=== PATIENT | female | born 1960 | race Caucasian/White ===

== ENCOUNTER 2017-10-11 10:19 | Emergency (ER) | payer OTHER ==
[~2017-10-11] VITALS: Ht 170.2 cm; Wt 64.0 kg
[2017-10-11] MEDS ORDERED: NS IV 1000 ML 1,000 ML IV ONE (11:06)
[2017-10-11 11:11] LABS: BASOPHILS % (AUTO) 1 % (0-10); EOSINOPHILS % (AUTO) 1 % (0-10); HEMATOCRIT 36 % (35-52); HEMOGLOBIN 11.9 G/DL (11.5-16.0); LYMPHOCYTES # (AUTO) 0.8 X 10^3 (1.0-4.0); LYMPHOCYTES % (AUTO) 19 % (12-44); MEAN CORPUSCULAR HEMOGLOBIN 30 PG (25-34); MEAN CORPUSCULAR HGB CONC 33 G/DL (32-36); MEAN CORPUSCULAR VOLUME 89 FL (80-99); MONOCYTES # (AUTO) 0.4 X 10^3 (0.0-1.0); MONOCYTES % (AUTO) 8 % (0-12); NEUTROPHILS # (AUTO) 3.1 X 10^3 (1.8-7.8); NEUTROPHILS % (AUTO) 71 % (42-75); PLATELET COUNT 476 10^3/uL (130-400); RED BLOOD COUNT 4.03 10^6/uL (4.35-5.85); WHITE BLOOD COUNT 4.3 10^3/uL (4.3-11.0)
[2017-10-11 11:25] LABS: ALANINE AMINOTRANSFERASE 11 U/L (0-55); ALBUMIN 3.6 GM/DL (3.2-4.5); ALKALINE PHOSPHATASE 101 U/L (40-136); BILIRUBIN,TOTAL 0.4 MG/DL (0.1-1.0); BUN/CREATININE RATIO 9; CARBON DIOXIDE 23 MMOL/L (21-32); CHLORIDE 104 MMOL/L (98-107); CREATININE SERUM 0.75 MG/DL (0.60-1.30); GFR ESTIMATED > 60; GLUCOSE 104 MG/DL (70-105); POTASSIUM 4.2 MMOL/L (3.6-5.0); SODIUM 139 MMOL/L (135-145); TOTAL PROTEIN 7.5 GM/DL (6.4-8.2)
[2017-10-11] MEDS ORDERED: KETOROLAC 30 MG/ML VIAL IVP STA (11:30)
--- NOTE | 2017-10-11 11:33 | ED GI ---
General Chief Complaint: Abdominal/GI Problems Stated Complaint: ABD PAIN Nursing Triage Note: PT TO AMBULATES TO ROOM 7 PT CO OF ABD PAIN N/V FOR A FEW DAYS, PT STATES HAS HX OF COLITIS, HAD RECENT HEMORRIOD SURG APPROX 2 WEEKS AGO. PT STATES HAD BEEN TAKING HYDROCODONES BUT STOPPED WHEN STARTED BEING NAUSEATED AND HAVING ABD PAIN. PT STATES HAD STOPPED COLITIS MEDS FOR A FEW DAYS. RATES PAIN 4/10 Sepsis Screen: No Definite Risk Source of Information: Patient Exam Limitations: No Limitations History of Present Illness Date Seen by Provider: Oct 11, 2017 Time Seen by Provider: 11:00 Initial Comments Here with report of abdominal pain with nausea the past couple days she had hemorrhoid surgery 2 weeks ago and was having some watery stools. She was done and stool softeners. She did start those yesterday as well as MiraLAX. She stopped her hydrocodone yesterday. She says that she may be a little bit dehydrated. Does have history of colitis and she had to stop her colitis medicines for a few days. Denies fevers. Timing/Duration: 2-3 Days Severity/Quality: Moderate, Cramping Location: Generalized Abdomen Radiation: No Radiation Activities at Onset: None Modifying Factors: Worsens With Eating, Improves With Resting Associated Symptoms: No Back Pain, No Chest Pain, No Fever/Chills, Fatigue, Nausea/Vomiting, No Shortness of Air, No Weakness Allergies and Home Medications Allergies Coded Allergies: No Known Drug Allergies (Unverified , 10/11/17) Review of Systems Constitutional: see HPI, No chills, No fever EENTM: No Symptoms Reported Respiratory: No Symptoms Reported Cardiovascular: No Symptoms Reported Gastrointestinal: See HPI, Abdominal Pain, Diarrhea, Nausea, Vomiting Genitourinary: Denies Hematuria, Urgency Musculoskeletal: no symptoms reported Skin: no symptoms reported All Other Systems Reviewed Negative Unless Noted: Yes Past Uwadfay-Dhfcmj-Zbqoym Hx Patient Social History Alcohol Use: Denies Use Recreational Drug Use: No Smoking Status: Never a Smoker Recent Foreign Travel: No Contact w/Someone Who Travel: No Recent Infectious Disease Expo: No Recent Hopitalizations: Yes (HEMORROIDETOMY 2 WEEKS AGO) Physical Abuse: No Sexual Abuse: No Seasonal Allergies Seasonal Allergies: No Surgeries History of Surgeries: Yes (hemorrhoidectomy) Surgeries: Abdominal Respiratory History of Respiratory Disorde: No Cardiovascular History of Cardiac Disorders: No Neurological History of Neurological Disord: No Genitourinary History of Genitourinary Disor: No Gastrointestinal History of Gastrointestinal Di: Yes Gastrointestinal Disorders: Colitis Musculoskeletal History of Musculoskeletal Dis: No Endocrine History of Endocrine Disorders: No HEENT History of HEENT Disorders: No Cancer History of Cancer: No Psychosocial History of Psychiatric Problem: No Suicide Risk Score: 0 Integumentary History of Skin or Integumenta: No Reviewed Nursing Assessment Reviewed/Agree w Nursing PMH: Yes Physical Exam Vital Signs VS - Last 72 Hours, by Label 10/11/17 10:25 Temp 97.4 Pulse 74 Resp 18 B/P (MAP) 160/79 (106) Pulse Ox 99 Capillary Refill : Less Than 3 Seconds General Appearance: WD/WN, no apparent distress HEENT: PERRL/EOMI, pharynx normal Neck: full range of motion, supple Respiratory: lungs clear, normal breath sounds Cardiovascular: regular rate, rhythm, no murmur Peripheral Pulses: 2+ Dorsalis Pedis (R), 2+ Left Dors-Pedis (L), 2+ Radial Pulses (R), 2+ Radial Pulses (L) Gastrointestinal: normal bowel sounds, non tender, soft Extremities: non-tender, normal inspection Back: normal inspection, no CVA tenderness, no vertebral tenderness Neurologic/Psychiatric: alert, oriented x 3 Skin: normal color, warm/dry Progress/Results/Core Measures Results/Orders Lab Results Laboratory Tests Test 10/11/17 10:45 10/11/17 13:23 Range/Units White Blood Count 4.3 4.3-11.0 10^3/uL Red Blood Count 4.03 L 4.35-5.85 10^6/uL Hemoglobin 11.9 11.5-16.0 G/DL Hematocrit 36 35-52 % Mean Corpuscular Volume 89 80-99 FL Mean Corpuscular Hemoglobin 30 25-34 PG Mean Corpuscular Hemoglobin Concent 33 32-36 G/DL Red Cell Distribution Width 13.0 10.0-14.5 % Platelet Count 476 H 130-400 10^3/uL Mean Platelet Volume 9.0 7.4-10.4 FL Neutrophils (%) (Auto) 71 42-75 % Lymphocytes (%) (Auto) 19 12-44 % Monocytes (%) (Auto) 8 0-12 % Eosinophils (%) (Auto) 1 0-10 % Basophils (%) (Auto) 1 0-10 % Neutrophils # (Auto) 3.1 1.8-7.8 X 10^3 Lymphocytes # (Auto) 0.8 L 1.0-4.0 X 10^3 Monocytes # (Auto) 0.4 0.0-1.0 X 10^3 Eosinophils # (Auto) 0.0 0.0-0.3 10^3/uL Basophils # (Auto) 0.0 0.0-0.1 10^3/uL Sodium Level 139 135-145 MMOL/L Potassium Level 4.2 3.6-5.0 MMOL/L Chloride Level 104 98-107 MMOL/L Carbon Dioxide Level 23 21-32 MMOL/L Anion Gap 12 5-14 MMOL/L Blood Urea Nitrogen 7 7-18 MG/DL Creatinine 0.75 0.60-1.30 MG/DL Estimat Glomerular Filtration Rate > 60 BUN/Creatinine Ratio 9 Glucose Level 104 70-105 MG/DL Calcium Level 9.0 8.5-10.1 MG/DL Magnesium Level 2.0 1.8-2.4 MG/DL Total Bilirubin 0.4 0.1-1.0 MG/DL Aspartate Amino Transf (AST/SGOT) 18 5-34 U/L Alanine Aminotransferase (ALT/SGPT) 11 0-55 U/L Alkaline Phosphatase 101 40-136 U/L Total Protein 7.5 6.4-8.2 GM/DL Albumin 3.6 3.2-4.5 GM/DL Urine Color YELLOW Urine Clarity CLEAR Urine pH 8 5-9 Urine Specific [place] 1.010 L 1.016-1.022 Urine Protein NEGATIVE NEGATIVE Urine Glucose (UA) NEGATIVE NEGATIVE Urine Ketones 4+ H NEGATIVE Urine Nitrite NEGATIVE NEGATIVE Urine Bilirubin NEGATIVE NEGATIVE Urine Urobilinogen NORMAL NORMAL MG/DL Urine Leukocyte Esterase NEGATIVE NEGATIVE Urine RBC (Auto) NEGATIVE NEGATIVE Urine RBC NONE /HPF Urine WBC NONE /HPF Urine Squamous Epithelial Cells NONE /HPF Urine Crystals NONE /LPF Urine Bacteria NEGATIVE /HPF Urine Casts NONE /LPF Urine Mucus NEGATIVE /LPF Urine Culture Indicated NO My Orders Orders - ALEJANDRA BAIN MD Cbc With Automated Diff (10/11/17 11:06) Comprehensive Metabolic Panel (10/11/17 11:06) Magnesium (10/11/17 11:06) Ua Culture If Indicated (10/11/17 11:06) Saline Lock/Iv-Start (10/11/17 11:06) Acute Abd Series (10/11/17 11:06) Ns Iv 1000 Ml (Sodium Chloride 0.9%) (10/11/17 11:06) Ketorolac Injection (Toradol Injection) (10/11/17 11:30) D5 Ns 1000 Ml Iv Solution (Dextrose 5%/0 (10/11/17 14:04) Acetaminophen Tablet (Tylenol Tablet) (10/11/17 14:08) Medications Given in ED Current Medications Medications Dose Ordered Sig/Devang Route Start Time Stop Time Status Last Admin Dose Admin Sodium Chloride 1,000 ml @ 0 mls/hr Q0M ONCE IV 10/11/17 11:06 10/11/17 11:08 DC 10/11/17 11:22 1,000 MLS/HR Vital Signs/I&O Vital Sign - Last 12Hours 10/11/17 10:25 Temp 97.4 Pulse 74 Resp 18 B/P (MAP) 160/79 (106) Pulse Ox 99 Blood Pressure Mean: 106 Progress Note : Progress Note Seen and evaluated. IV, labs, UA, normal saline 1 L bolus and Zofran 4 mg IV. Monitor patient. Renal function okay so Toradol 30 mg IV ordered. Acute abdominal series is been ordered. Monitor patient. 1342: UA obtained and pending results. Patient doing a little better. 1435: Repeat D5NS 1 L due to 4 + ketones. Tylenol 1 g by mouth given. Discharged home after with return precautions. Patient feeling better. Discharged home with return precautions. Patient verbalize understanding instructions and agreement with plan. Departure Impression Impression: Primary Impression: Dehydration Additional Impression: Generalized abdominal pain Disposition: HOME, SELF-CARE Condition: Improved Departure-Patient Inst. Decision time for Depature: 14:44 Referrals: BETSY VEGA DO (PCP/Family) Primary Care Physician Patient Instructions: Acute Abdomen (Belly Pain), Adult (DC), Dehydration, Adult (DC), Constipation, Adult (DC) Add. Discharge Instructions: All discharge instructions reviewed with patient and/or family. Voiced understanding. Take medications as previously prescribed. Clear liquid diet for 24 hours and advance as tolerated. Follow-up with your DrKamila in a few days for recheck. Return for worse pain, fever, vomiting, weakness, breathing problems or other concerns as needed. ALEJANDRA BAIN MD Oct 11, 2017 11:33
--- NOTE | 2017-10-11 12:33 | Diagnostic Imaging Report ---
INDICATION: Pain, recent surgery. FINDINGS: The lungs are clear. The heart and vessels normal. There is no effusion or pneumothorax. Supine and upright abdominal films revealed no evidence for bowel obstruction and no findings of significant ileus. No pathological bowel dilatation. No air-fluid levels. No pneumatosis. No free gas. No abnormal fecal loading. IMPRESSION: No acute-appearing abnormalities. Dictated by: Dictated on workstation # [id number]
[2017-10-11 13:39] LABS: BILIRUBIN,URINE NEGATIVE (NEGATIVE); CLARITY,URINE CLEAR; COLOR,URINE YELLOW; GLUCOSE, URINE (UA) NEGATIVE (NEGATIVE); KETONES,URINE 4+ (NEGATIVE); LEUKOCYTE ESTERASE ,URINE NEGATIVE (NEGATIVE); NITRITE,URINE NEGATIVE (NEGATIVE); PH,URINE 8 (5-9); PROTEIN,URINE NEGATIVE (NEGATIVE); UROBILINOGEN,URINE NORMAL (NORMAL)
[2017-10-11 13:59] LABS: BACTERIA,URINE NEGATIVE /HPF
[2017-10-11] MEDS ORDERED: D5 NS 1000 ML IV SOLUTION 1,000 ML IV STA (14:04)
[2017-10-11] MEDS ORDERED: ACETAMINOPHEN 500 MG TAB (TYLENOL) PO STA (14:08)
[2017-10-11 14:50] VITALS: BP 134/76
--- OUTSIDE RECORDS SUMMARY | 2017-10-13 08:06 | XMS REPORT | Continuity of Care Document ---
Author Author [employer] Organization [facility] Address Unknown Phone Unavailable Care Team Providers Care Dry Cleaner Hand Name Role Phone [employer] Unavailable Unavailable Problems Medications Allergies, Adverse Reactions, Alerts Immunizations Results Vital Signs Encounters Location Location Details Encounter Type Encounter Number Reason For Visit Attending Provider ADM Date DC Date Status Source OUTPATIENT [id number] ADRIANA LIMON 07/13/20162015 Active [facility] OUTPATIENT [id number] 09/06/2017 Active [facility] OP SURGERY [id number] GABRIEL VICK 09/24/20172017 Active [facility] O GABRIEL VICK Active [facility] Procedures Plan of Care Social History Assessment and Plan Family History Advance Directives Functional Status
--- OUTSIDE RECORDS SUMMARY | 2017-10-13 08:07 | XMS REPORT | Clinical Summary ---
Author Author [facility] Organization [facility] Address Unknown Phone Unavailable Care Team Providers Care Cover Machine Operator Name Role Phone Yadira Sands MD PCP Wilton Wright MD [address] [id number] Source Comments Some departments are not documenting in the electronic medical record. If you do not see the information that you expected, contact Release of Information in the Health Information Management department at [phone] for further assistance in locating additional records.[facility] Allergies No Known Allergies Current Medications Prescription Sig. Disp. Refills Start End Date Status Date Calcium-Cholecalciferol Take 1 tablet by mouth Active (D3) (CALCIUM 600 + D) twice daily. 600 mg(1,500mg) -400 unit tab vitamins, multi PED Chew 1 tablet by mouth Active w/iron (MULTIVITAMINS daily. Flintstones W-IRON) chew tablet ferrous sulfate (FEOSOL, Take 1 Tab by mouth 90 Tab 1 07/23/20 Active FEROSUL) 325 mg (65 mg daily. 16 iron) tabletIndications: Iron deficiency anemia due to chronic blood loss balsalazide(+) (COLAZAL) Take 3 Caps by mouth 270 Cap 5 02/19/20 Active 750 mg cap three times daily. 17 Artificial Tear Apply 1 drop to both eyes Active (Hypromellose) (GENTEAL twice daily. MODERATE) 0.3 % drop ondansetron (ZOFRAN) 4 mg Take 1 tablet by mouth 4 tablet 0 08/19/20 Active tabletIndications: every 4 hours as needed 17 Hemorrhoids, unspecified for Nausea or Vomiting. hemorrhoid type cyclosporine (RESTASIS Apply 1 drop to both eyes Active MULTIDOSE) 0.05 % drop twice daily. cyanocobalamin (vitamin Dissolve 1 tablet by Active B-12) 1,500 mcg TbDi mouth three times weekly. Administer on Saturday, Saturday and Saturday oxyCODONE (ROXICODONE, Take 1 tablet by mouth 60 tablet 0 09/24/19 Active OXY-IR) 5 mg tablet every 4 hours as needed 18 for Pain magnesium hydroxide (MILK Take 30 mL by mouth every 473 mL 0 09/24/19 Active OF MAGNESIA) 400 mg/5 mL 24 hours as needed. 18 oral suspension acetaminophen (TYLENOL) Take 2 tablets by mouth 0 09/24/19 Active 325 mg tablet every 6 hours. 18 HYDROcodone/acetaminophen 10/01/19 Active (NORCO) 7.5/325 mg tablet 18 Active Problems Problem Noted Date Hemorrhoids 08/19/2017 Overview: Added automatically from request for surgery [id number] Colon cancer screening 03/25/2015 Overview: repeat colonoscopy 03/2016 Encounters Date Type Specialty Care Team Description 10/10/2017 Telephone Oncology Gabriel Carson DO General Question 10/10/2017 Orders Only Oncology Gabriel Carson DO Abdominal pain, unspecified abdominal location (Primary Dx) 10/07/2017 Office Visit General Surgery Onesimo Encinas PA-C Grade IV hemorrhoids (Primary Dx) 09/24/2017 Hospital Gabriel Carson DO Hemorrhoids Encounter 09/24/2017 Pharmacy Visit 09/24/2017 Procedure Pass 09/24/2017 Surgery Gabriel Carson DO HEMORRHOIDECTOMY 09/06/2017 PAC Office Anesthesiology Gabriel Carson DO Hemorrhoids , unspecified Visit hemorrhoid type (Primary Dx); Preop cardiovascular exam 09/06/2017 Anesthesia Any Black APRN Event 08/19/2017 Office Visit General Surgery Wilton Wright MD Hemorrhoids, unspecified Gabriel Carson DO hemorrhoid type (Primary Dx) 08/19/2017 Prep for Case General Surgery Gabriel Carson DO from Last 3 Months Family History Medical History Relation Name Comments Heart Disease Father Lung Disease Mother Relation Name Status Comments Father Mother Social History Tobacco Use Types Packs/Day Years Used Date Former Smoker 0.5 4 Quit: 09/03/1982 Smokeless Tobacco: Never Used Comments: STARTED ABOUT 19 YEARS OLD TO ABOUT 23; 1/2 PACK A DAY Alcohol Use Drinks/Week oz/Week Comments Yes 1 OR 2 DRINKS A MONTH Sex Assigned at Date Recorded Not on file Last Filed Vital Signs Vital Sign Reading Time Taken Blood Pressure 121/61 10/07/2017 9:46 AM [employer] Pulse 80 10/07/2017 9:46 AM [employer] Temperature 36.4 C (97.6 F) 10/07/2017 9:46 AM [employer] Respiratory Rate 16 10/07/2017 9:46 AM [employer] Oxygen Saturation 97% 09/24/2017 10:00 AM [employer] Inhaled Oxygen - - Concentration Weight 68.9 kg (152 lb) 10/07/2017 9:46 AM [employer] Height 172.7 cm (5' 7.99") 10/07/2017 9:46 AM [employer] Body Mass Index 23.12 10/07/2017 9:46 AM [employer] Plan of Treatment Health Maintenance Due Date Last Done Comments PHYSICAL (COMPREHENSIVE) 1966 EXAM PERTUSSIS VACCINE 1970 TETANUS VACCINE 1976 CERVICAL CANCER SCREENING 1989 BREAST CANCER SCREENING 1999 INFLUENZA VACCINE 04/02/2017 COLORECTAL CANCER 08/30/2026 08/30/2016, 08/30/2016, 03/16/2015, SCREENING Additional history exists HEPATITIS C SCREENING Completed 11/01/2014 Procedures Procedure Name Priority Date/Time Associated Diagnosis Comments ECG-SCAN 09/25/2017 Results for this 3:52 PM [employer] procedure are in the results section. ECG-SCAN 09/25/2017 Results for this 3:52 PM [employer] procedure are in the results section. HEMORRHOIDECTOMY 09/24/2017 Hemorrhoids 8:00 AM [employer] from Last 3 Months Results * ECG-SCAN (09/25/2017 3:52 PM) Narrative Ordered by an unspecified provider. * ECG-SCAN (09/25/2017 3:52 PM) Narrative Ordered by an unspecified provider. * SURGICAL PATHOLOGY (09/24/2017 9:54 AM) Component Value Ref Range PATHOLOGY REPORT [facility] [email or web address] Department of Pathology and Laboratory Medicine [address] [place] [id number] Surgical Pathology Office: [phone] SURGICAL PATHOLOGY REPORT NAME: FAITH QUEZADA SURG PATH #: [id number] MR #: [id number] SPECIMEN CLASS: ADELA CALDERÓN #: [id number] ALT ID #: LOCATION: [id number] DATE OF PROCEDURE: 09/24/2017 AGE: 57 SEX: F DATE RECEIVED: 09/24/2017 : 1960 TIME RECEIVED: 09:54 PHYSICIAN: GABRIEL CARSON DO DATE OF REPORT: 09/25/2017 COPY TO: DATE OF PRINTIN09/25/2017 ################################################## ###################### Final Diagnosis: A. Anal rectal mucosa, "hemorrhoids", hemorrhoidectomy: Dilated and congested blood vessels consistent with hemorrhoids. Attestation: By this signature, I attest that I have personally formulated the final interpretation expressed in this report and that the above diagnosis is based upon my examination of the slides and/or other material indicated in this report. +++ +++ CHARMAINE Villarreal Resident hill/09/25/2017 ################################################## ###################### Material Received: A: hemorrhoids History: 57-year-old female with a history of hemorrhoids. Gross Description: A. Fixative: Formalin Labeled: "hemorrhoids" Dimensions: 4.2 x 3.0 x 1.1 cm aggregate of marroquin-pink tissue fragments. Cassette A1- Body Cleaner sections of hemorrhoid. (ksh) ksh/09/24/2017 Specimen Performing Laboratory [facility] RESULTS * CBC (09/06/2017 2:54 PM) Component Value Ref Range White Blood Cells 3.9 (L) 4.5 - 11.0 K/UL RBC 3.91 (L) 4.0 - 5.0 M/UL Hemoglobin 11.6 (L) 12.0 - 15.0 GM/DL Hematocrit 34.5 (L) 36 - 45 % MCV 88.2 80 - 100 FL MCH 29.7 26 - 34 PG MCHC 33.7 32.0 - 36.0 G/DL RDW 14.4 11 - 15 % Platelet Count 239 150 - 400 K/UL MPV 7.4 7 - 11 FL Specimen Performing Laboratory [facility] [address] [place] [address] * COMPREHENSIVE METABOLIC PANEL (09/06/2017 2:54 PM) Component Value Ref Range Sodium 142 137 - 147 MMOL/L Potassium 3.6 3.5 - 5.1 MMOL/L Chloride 104 98 - 110 MMOL/L Glucose 129 (H) 70 - 100 MG/DL Blood Urea Nitrogen 11 7 - 25 MG/DL Creatinine 0.72 0.4 - 1.00 MG/DL Calcium 9.7 8.5 - 10.6 MG/DL Total Protein 7.1 6.0 - 8.0 G/DL Total Bilirubin 0.3 0.3 - 1.2 MG/DL Albumin 4.2 3.5 - 5.0 G/DL Alk Phosphatase 79 25 - 110 U/L AST (SGOT) 22 7 - 40 U/L CO2 33 (H) 21 - 30 MMOL/L ALT (SGPT) 12 7 - 56 U/L Anion Gap 5 3 - 12 eGFR Non >60 >60 mL/min Comment: The eGFR is not validated for use in drug dosing adjustments. Continue to use estimated creatinine clearance per dosing reference text. Please contact the Clinical Pharmacist for questions. eGFR >60 >60 mL/min Comment: The eGFR is not validated for use in drug dosing adjustments. Continue to use estimated creatinine clearance per dosing reference text. Please contact the Clinical Pharmacist for questions. Specimen Performing Laboratory [facility] [address] [place] [address] from Last 3 Months
--- OUTSIDE RECORDS SUMMARY | 2017-10-13 08:07 | XMS REPORT | Encounter Summary ---
Author Author [facility] Organization [facility] Address Unknown Phone Unavailable Care Team Providers Care Forester Aide Name Role Phone Yadira Sands MD PCP Wilton Wright MD [address] [phone] Reason for Visit * Reason Comments Post Operative Visit Encounter Details Date Type Department Care Team Description 10/07/2017 Office Visit [facility] Onesimo Encinas PA-C Grade IV hemorrhoids Physicians - Surgery [address] (Primary Dx) [place] [address] [address] [facility] [phone] [place] [address] Social History Tobacco Use Types Packs/Day Years Used Date Former Smoker 0.5 4 Quit: 09/03/1982 Smokeless Tobacco: Never Used Comments: STARTED ABOUT 19 YEARS OLD TO ABOUT 23; 1/2 PACK A DAY Alcohol Use Drinks/Week oz/Week Comments Yes 1 OR 2 DRINKS A MONTH Sex Assigned at Date Recorded Not on file as of this encounter Last Filed Vital Signs Vital Sign Reading Time Taken Blood Pressure 121/61 10/07/2017 9:46 AM BIAZZI NITRATOR OPERATOR Pulse 80 10/07/2017 9:46 AM BIAZZI NITRATOR OPERATOR Temperature 36.4 C (97.6 F) 10/07/2017 9:46 AM BIAZZI NITRATOR OPERATOR Respiratory Rate 16 10/07/2017 9:46 AM BIAZZI NITRATOR OPERATOR Oxygen Saturation - - Inhaled Oxygen - - Concentration Weight 68.9 kg (152 lb) 10/07/2017 9:46 AM BIAZZI NITRATOR OPERATOR Height 172.7 cm (5' 7.99") 10/07/2017 9:46 AM BIAZZI NITRATOR OPERATOR Body Mass Index 23.12 10/07/2017 9:46 AM BIAZZI NITRATOR OPERATOR in this encounter Functional Status Functional Status Response Date of Assessment Does the patient have a hearing impairment: No 10/07/2017 Does the patient have a visual impairment: No 10/07/2017 Does the patient have impaired ambulation: No 10/07/2017 Does the patient have an activity of daily living No 10/07/2017 (ADL) impairment: Does the patient have an instrumental activity of No 10/07/2017 daily living (IADL) impairment: Cognitive Status Response Date of Assessment Does the patient have a cognitive impairment: No 10/07/2017 as of this encounter Progress Notes * Onesimo Encinas PA-C - 10/07/2017 10:15 AM BIAZZI NITRATOR OPERATOR Formatting of this note may be different from the original. Date of Service: 10/07/2017 Subjective: Faith Elias is a 57 y.o. female. History of Present Illness Ms. Elias is a pleasant 57 year old female with a history of UC followed by Dr. Wright currently treated with balsalazide as well as a history of grade IV hemorrhoids s/p a hemorrhoidectomy in left lateral position and right posterior position with RBL of right anterior column on 09/24/[address] Carson. Pathology was consistent with hemorrhoids. She presents to clinic today for a post-operative follow up. Today, the patient reports severe anal pain post-operatively that has slowly improved. She also endorses BRBPR with minimal amounts of small blood clots per rectum that has also improved. She is taking Elk 7.5/325 every 4 hours which was provided by her PCP which is well controlling her symptoms. She is not taking any Oxycodone. She also endorses small and frequent watery BMs 10-15 times a day which has been ongoing since her surgery. She denies any recent Abx use. She believes her watery stools are related to her history of UC as she has just recently resumed her medical therapy for UC. She states that her diarrhea is improving. Review of Systems Constitutional: Negative for chills and fever. Gastrointestinal: Positive for anal bleeding, diarrhea and rectal pain. All other systems reviewed and are negative. Past Medical History: Diagnosis Date Malaise and fatigue Ulcerative colitis (HCC) 1999 Past Surgical History: Procedure Laterality Date WISDOM TEETH EXTRACTION 1985 HEMORRHOIDECTOMY 1999 POSSIBLY USED RUBBER BANDS HEMORRHOIDECTOMY 2011 POSSIBLY DID A STAPLE LIGATION HX ENDOSCOPY 02/09/2014 [place] COLONOSCOPY FLX DX W/COLLJ SPEC WHEN PFRMD N/A 08/30/2016 COLONOSCOPY performed by CHARMAINE Pulido at ENDO/GI COLONOSCOPY 08/30/2016 COLONOSCOPY EXCISION LESION performed by CHARMAINE Pulido at ENDO/GI COLONOSCOPY 08/30/2016 COLONOSCOPY BIOPSY performed by CHARMAINE Pulido at ENDO/GI HEMORRHOIDECTOMY N/A 09/24/2017 HEMORRHOIDECTOMY performed by James Carson DO at [facility] OR/Periop SECTION 1984 & 1990 Family History Problem Relation Age of Onset Lung Disease Mother Heart Disease Father Social History Social History Marital status: Spouse name: N/A Number of children: N/A Years of education: N/A Social History Main Topics Smoking status: Former Smoker Packs/day: 0.50 Years: 4.00 Quit date: 09/03/1982 Smokeless tobacco: Never Used Comment: STARTED ABOUT 19 YEARS OLD TO ABOUT 23; 1/2 PACK A DAY Alcohol use Yes Comment: 1 OR 2 DRINKS A MONTH Drug use: No Sexual activity: Not on file Other Topics Concern Not on file Social History Narrative No narrative on file Objective: acetaminophen (TYLENOL) 325 mg tablet Take 2 tablets by mouth every 6 hours. Artificial Tear (Hypromellose) (GENTEAL MODERATE) 0.3 % drop Apply 1 drop to both eyes twice daily. balsalazide(+) (COLAZAL) 750 mg cap Take 3 Caps by mouth three times daily. Calcium-Cholecalciferol (D3) (CALCIUM 600 + D) 600 mg(1,500mg) -400 unit tab Take 1 tablet by mouth twice daily. cyanocobalamin (vitamin B-12) 1,500 mcg TbDi Dissolve 1 tablet by mouth three times weekly. Administer on Saturday, Saturday and Saturday cyclosporine (RESTASIS MULTIDOSE) 0.05 % drop Apply 1 drop to both eyes twice daily. ferrous sulfate (FEOSOL, FEROSUL) 325 mg (65 mg iron) tablet Take 1 Tab by mouth daily. (Patient taking differently: Take 325 mg by mouth at bedtime as needed. Indications: bleed) HYDROcodone/acetaminophen (NORCO) 7.5/325 mg tablet magnesium hydroxide (MILK OF MAGNESIA) 400 mg/5 mL oral suspension Take 30 mL by mouth every 24 hours as needed. ondansetron (ZOFRAN) 4 mg tablet Take 1 tablet by mouth every 4 hours as needed for Nausea or Vomiting. oxyCODONE (ROXICODONE, OXY-IR) 5 mg tablet Take 1 tablet by mouth every 4 hours as needed for Pain vitamins, multi PED w/iron (MULTIVITAMINS W-IRON) chew tablet Chew 1 tablet by mouth daily. [facility] Vitals: 10/07/17 0946 BP: 121/61 Pulse: 80 Resp: 16 Temp: 36.4 C (97.6 F) TempSrc: Oral Weight: 68.9 kg (152 lb) Height: 172.7 cm (67.99") Body mass index is 23.12 kg/m. Physical Exam Constitutional: She is oriented to person, place, and time. She appears well- developed and well-nourished. No distress. HENT: Head: Normocephalic and atraumatic. Eyes: Conjunctivae and EOM are normal. Pupils are equal, round, and reactive to light. No scleral icterus. Neck: Normal range of motion. Neck supple. Cardiovascular: Normal rate. Pulmonary/Chest: Effort normal. No respiratory distress. Genitourinary: Genitourinary Comments: External Perianal Exam: Well healing incision sites X2 with mild post-operative swelling. No bleeding noted. Perianal skin is intact. Musculoskeletal: Normal range of motion. Neurological: She is alert and oriented to person, place, and time. No cranial nerve deficit. Skin: Skin is warm and dry. No rash noted. She is not diaphoretic. No erythema. No pallor. Psychiatric: She has a normal mood and affect. Her behavior is normal. Judgment and thought content normal. Vitals reviewed. Assessment and Plan: 1. Hemorrhoids 2. UC Ms. Elias is a pleasant 57 year old female with a history of UC followed by Dr. Wright currently treated with balsalazide as well as a history of grade IV hemorrhoids s/p a hemorrhoidectomy in left lateral position and right posterior position with RBL of right anterior column on 09/24/[address] Carson. Pathology was consistent with hemorrhoids. She presents to clinic today for a post-operative follow up with anal pain and BRBPR which is improving. She also reports watery diarrhea 10-15 times a day. Plan: --Pathology was benign. --The patient received Elk 7.5/325 mg from her PCP. She does not need a refill on this medication. --Her exam today reveals some post-operative swelling. Explained how this will continue to improve with time. --Advised sitz baths and Tylenol as an adjunct to her Elk. --The patient would like to delay her return to work until 10/28/2017. Will provide appropriate paperwork for this patient's FLMA. --Will have the patient return to clinic in [address] Carson. If her symptoms have improve or resolved, she may cancel this appointment and return PRN. She understands to contact our office with any questions or concerns. Dr. Carson is my collaborating physician with this patient. Onesimo Encinas PA-C in this encounter Plan of Treatment Not on fileas of this encounter Visit Diagnoses Diagnosis Grade IV hemorrhoids - Primary Unspecified hemorrhoids with other complication
--- OUTSIDE RECORDS SUMMARY | 2017-10-13 08:07 | XMS REPORT | Encounter Summary ---
Author Author [facility] Organization [facility] Address Unknown Phone Unavailable Care Team Providers Care Orchestrator Name Role Phone Yadira Sands MD PCP Wilton Wright MD [address] [phone] Encounter Details Date Type Department Care Team Description 09/24/2017 Pharmacy [place] [facility] [address] Social History Tobacco Use Types Packs/Day Years Used Date Former Smoker 0.5 4 Quit: 09/03/1982 Smokeless Tobacco: Never Used Comments: STARTED ABOUT 19 YEARS OLD TO ABOUT 23; 1/2 PACK A DAY Alcohol Use Drinks/Week oz/Week Comments Yes 1 OR 2 DRINKS A MONTH Sex Assigned at Date Recorded Not on file as of this encounter Functional Status Functional Status Response Date of Assessment Does the patient have a hearing impairment: No 08/19/2017 Does the patient have a visual impairment: No 08/19/2017 Does the patient have impaired ambulation: No 08/19/2017 Does the patient have an activity of daily living No 08/19/2017 (ADL) impairment: Does the patient have an instrumental activity of No 08/19/2017 daily living (IADL) impairment: Cognitive Status Response Date of Assessment Does the patient have a cognitive impairment: No 08/19/2017 as of this encounter Plan of Treatment Not on fileas of this encounter Visit Diagnoses Not on filein this encounter
--- OUTSIDE RECORDS SUMMARY | 2017-10-13 08:07 | XMS REPORT | Encounter Summary ---
Author Author [facility] Organization [facility] Address Unknown Phone Unavailable Care Team Providers Care Grant Specialist Name Role Phone Yadira Sands MD PCP Wilton Wright MD [address] [phone] Reason for Visit * Auth/Cert Status Reason Specialty Diagnoses / Referred By Referred To Procedures Contact Contact Diagnoses Hemorrhoids Procedures [place] HEMORRHOIDECTOMY INT & XTRNL 2/> COLUMN/JOSEF HEMORRHOIDECTOMY Encounter Details Date Type Department Care Team Description 09/24/2017 Anesthesia [facility] Davida Mayen MD [address] [address] [address] [place], [place] [id number] Anesthesia Record Procedure Name Responsible Anesthesia Start Time Anesthesia Stop Time Anesthesiologist HEMORRHOIDECTOMY (N/A Eduardo Colmenares MD 09/24/17 0758 09/24/17 0859 Anus) Date Time Event Comment 754 AN Equip Check 2017 757 Anes Start 0758 An Start Data 0800 An Induction The patient was reevaluated immediately before moderate or deep sedation use and before anesthesia induction. 0802 An Intubation 0803 Anesthesia Ready 0814 Proc Start 0848 An Extubation 0858 an stop data 0858 Handoff to RN I completed my SBAR handoff to the receiving nurse. 0859 An Stop Meds Name Total midazolam (VERSED) 1 mg/mL injection 2 mg fentaNYL PF (SUBLIMAZE) injection 50 mcg lidocaine (2%) 200 mg/10mL Injection 80 mg syringe propofol (DIPRIVAN) 200 mg/ 20 mL 230 mg injection (VIAL) ketamine (KETALAR) 10 mg/mL injection 20 mg sodium chloride 0.9 % infusion 500 mL * Name O2 N2O Inspired Air Sevoflurane Inspired Sevoflurane * No blood administrations on file. Type Details Placement Removal Wounds 09/24/17; 0839; Rectum; Surgical 09/24/17 0839 by Jack, (NOT for Incision; NO SURGICAL INCISION, NO Fara, RN Pressure DRESSINGS APPLIED Injuries) Peripheral 09/24/17; 0640; RN; L; Lower; Forearm; 09/24/17 0640 by Harness , 09/24/17 1031 by Susie, IV 20 G; 1; 09/24/17; 1031 SHEBA Garcia RN Supraglott 09/24/17; 0802; Mask ventilation not 09/24/17 0802 by Degraff, 09/24/17 0848 by Degraff, ic Airway attempted (0); LMA; 4; 1 insertion Rubio, PET CARE TECHNICIAN Rubio, PET CARE TECHNICIAN attempt; Auscultation; 09/24/17; 0848 in this encounter Social History Tobacco Use Types Packs/Day Years [...] impairment: No 08/19/2017 as of this encounter OR Notes * Anesthesia Postprocedure Evaluation - Bibiana Shah MD - 09/24/2017 10: 31 AM PULMONARY FUNCTION TECHNICIAN Post-Anesthesia Evaluation Name: Faith Elias : 1960 Age: 57 y.o. Sex: female Procedure Date: 09/24/2017 Procedure: Procedure(s) with comments: HEMORRHOIDECTOMY - CASE LENGTH 1 HOUR Surgeon: Surgeon(s): DO Jackie Medina MD Post-Anesthesia Vitals BP: 117/71 (09/24 1000) Temp: 36.7 C (98.1 F) (09/24 0900) Pulse: 61 (09/24 1000) Respirations: 16 PER MINUTE (09/24 1000) SpO2: 97 % (09/24 1000) O2 Delivery: None (Room Air) (09/24 0930) SpO2 Pulse: 61 (09/24 1000) Height: 170.2 cm (67") (09/24 0626) Post Anesthesia Evaluation Note Evaluation location: Pre/Post Patient participation: recovered; patient participated in evaluation Level of consciousness: alert Pain score: 3 Pain management: adequate Hydration: normovolemia Temperature: 36.0C - 38.4C Airway patency: adequate Perioperative Events Perioperative events: no Post-op nausea and vomiting: no PONV Postoperative Status Cardiovascular status: hemodynamically stable Respiratory status: spontaneous ventilation Additional comments: Feels ready to be discharged home. Perioperative Events Perioperative Event: No Emergency Case Activation: No * Anesthesia Preprocedure Evaluation - Eduardo Colmenares MD - 09/06/2017 2:42 PM PULMONARY FUNCTION TECHNICIAN Formatting of this note may be different from the original. Anesthesia Pre-Procedure Evaluation Name: Faith Elias : 1960 Age: 57 y.o. Sex: female Procedure Date: 09/24/2017 Procedure: Procedure(s) with comments: HEMORRHOIDECTOMY - CASE LENGTH 1 HOUR Physical Assessment Vital Signs (last filed in past 24 hours): BP: 132/76 (09/24 625) Temp: 36.6 C (97.9 F) (09/24 625) Pulse: 70 (09/24 625) Respirations: 16 PER MINUTE (09/24 625) SpO2: 97 % (09/24 625) O2 Delivery: None (Room Air) (09/24 625) Height: 170.2 cm (67") (09/24 625) Weight: 69 kg (152 lb 1.9 oz) (09/24 625) Patient History No Known Allergies Current Medications Medication Directions Artificial Tear (Hypromellose) (GENTEAL MODERATE) 0.3 % [...] tablet Take 1 Tab by mouth daily. Patient taking differently: Take 325 mg by mouth at bedtime as needed. Indications: bleed ondansetron (ZOFRAN) 4 mg tablet Take 1 tablet by mouth every 4 hours as needed for Nausea or Vomiting. vitamins, multi PED w/iron (MULTIVITAMINS W-IRON) chew tablet Chew 1 tablet by mouth daily. Flintstones Past Medical History: Diagnosis Date Malaise and fatigue Ulcerative colitis (HCC) 1999 Past Surgical History: Procedure Laterality Date WISDOM TEETH EXTRACTION 1985 HEMORRHOIDECTOMY 1999 POSSIBLY USED RUBBER BANDS HEMORRHOIDECTOMY 2011 POSSIBLY DID A STAPLE LIGATION HX ENDOSCOPY 02/09/2014 [place] COLONOSCOPY FLX DX W/COLLJ SPEC WHEN PFRMD N/A 08/30/2016 COLONOSCOPY performed by CHARMAINE Pulido at ENDO/GI COLONOSCOPY 08/30/2016 COLONOSCOPY EXCISION LESION performed by CHARMAINE Pulido at ENDO/GI COLONOSCOPY 08/30/2016 COLONOSCOPY BIOPSY performed by CHARMAINE Pulido at ENDO/GI SECTION 1984 & 1990 Social History Social History Marital status: Spouse name: N/A Number of children: N/A Years of education: N/A Occupational History Not on file. Social History Main Topics Smoking status: Former Smoker Packs/day: 0.50 Years: 4.00 Quit date: 09/03/1982 Smokeless tobacco: Never Used Comment: STARTED ABOUT 19 YEARS OLD TO ABOUT 23; 1/2 PACK A DAY Alcohol use Yes Comment: 1 OR 2 DRINKS A MONTH Drug use: No Sexual activity: Not on file Other Topics Concern Not on file Social History Narrative Review of Systems/Medical History Patient summary reviewed Nursing notes reviewed Pertinent labs reviewed PONV Screening: Female gender and Non-smoker No history of anesthetic complications No family history of anesthetic complications Airway TMJ (no current treatment) Pulmonary - negative Not a current smoker (former smoker: 2 pack years, quit 1982) Cardiovascular Recent diagnostic studies: ECG ECG 09/06/17: SR, rate 62 Exercise tolerance: >4 METS (able to ascend 2 flights of stairs, walk 6 blocks without CP or dyspnea) Beta Nikita therapy: No Beta blockers within 24 hours: n/a No hypertension, No valvular problems/murmurs No past IA, Palpitations (2009, negative Holter monitoring; noted with caffeine and stress, without associated symptoms; denies increase in frequency, severity, or change in character) No dysrhythmias No angina No hyperlipidemia GI/Hepatic/Renal Inflammatory bowel disease (UC, notes current mild flare with mucus-blood in stool; Colazal) No GERD, Bowel prep No nausea No vomiting Hemorrhoids Neuro/Psych - negative Musculoskeletal Right shoulder discomfort with abduction to 90 without ROM limitation Endocrine/Other Anemia (current oral iron supplementation, does note bleeding with bowel movements necessitating pad use, denies saturation of pad; received blood 2009 upon UC diagnosis without reaction) Hemorrhoids Physical Exam Airway Findings Mallampati: II TM distance: >3 FB Neck ROM: full Mouth opening: good Dental Findings: Cardiovascular Findings: Rhythm: regular Rate: normal No murmur, no carotid bruit, no peripheral edema Pulmonary Findings: Negative No rhonchi, no decreased breath sounds or no wheezes. Abdominal Findings: Not obese Neurological Findings: Normal mental status Diagnostic Tests Hematology: Lab Results Component Value Date HGB 11.6 09/06/2017 HCT 34.5 09/06/2017 PLTCT 239 09/06/2017 WBC 3.9 09/06/2017 MCV 88.2 09/06/2017 MCH 29.7 09/06/2017 MCHC 33.7 09/06/2017 MPV 7.4 09/06/2017 RDW 14.4 09/06/2017 General Chemistry: Lab Results Component Value Date NA 142 09/06/2017 K 3.6 09/06/2017 CL 104 09/06/2017 CO2 33 09/06/2017 GAP 5 09/06/2017 BUN 11 09/06/2017 CR 0.72 09/06/2017 GLU 129 09/06/2017 CA 9.7 09/06/2017 ALBUMIN 4.2 09/06/2017 TOTBILI 0.3 09/06/2017 Coagulation: No results found for: PT, PTT, INR Anesthesia Plan ASA score: 2 Plan: general Induction method: intravenous NPO status: acceptable Comments: (Pre-Anesthesia Evaluation Attestation: I have reviewed tompkins portions of the evaluation with the patient and spouse. I have examined the patient's airway, heart, and lungs. Risks/benefits/alternatives of anesthesia plan discussed with patient. Risks include, but not limited to N/V, allergic reactions to medications, damage to airway, peripheral nerve injury and damage to major organs. Patient understands these risks and wishes to proceed. Staff name: Eduardo Colmenares MD Date: 09/24/2017 ) Informed Consent Anesthetic plan and risks discussed with patient and spouse. Use of blood products discussed with patient and spouse; consented to blood products. Plan discussed with: anesthesiologist. labs: CBC, CMP, ECG GERTRUDE: none consult: none in this encounter Plan of Treatment Not on fileas of this encounter Visit Diagnoses Not on filein this encounter Administered Medications Medication Order MAR Action Action Date Dose Rate Site fentaNYL citrate PF (SUBLIMAZE) Given 09/24/2017 25 mcg injection 08:17 PULMONARY FUNCTION TECHNICIAN INTRA-PROCEDURE MED, Starting 09/24/17 at 0817, Until Sat09/24/17 at 0904, Pain Injectable, Anesthesia Intra-op Given 09/24/2017 25 mcg 08:19 PULMONARY FUNCTION TECHNICIAN ketamine (KETALAR) injection Given 09/24/2017 20 mg INTRA-PROCEDURE MED, Starting Tue 08:14 PULMONARY FUNCTION TECHNICIAN 09/24/17 at 0814, Until 09/24/17 at 0904, Anesthesia Intra-op lidocaine (PF) injection Given 09/24/2017 80 mg INTRA-PROCEDURE MED, Starting Tue 08:00 PULMONARY FUNCTION TECHNICIAN 09/24/17 at 0800, Until 09/24/17 at 0904, Anesthesia Intra-op midazolam (VERSED) injection Given 09/24/2017 2 mg Intravenous, INTRA-PROCEDURE MED, 07:54 PULMONARY FUNCTION TECHNICIAN Starting 09/24/17 at 0754, Until 09/24/17 at 0932, Agitation Injectable, Anxiety Injectable, Anesthesia Intra-op propofol (DIPRIVAN) injection Given 09/24/2017 200 mg INTRA-PROCEDURE MED, Starting Tue 08:00 PULMONARY FUNCTION TECHNICIAN 09/24/17 at 0800, Until 09/24/17 at 0904, Anesthesia Intra-op Given 09/24/2017 30 mg 08:15 PULMONARY FUNCTION TECHNICIAN sodium chloride 0.9 % infusion Given - New 09/24/2017 1,000 mL 20 mL/ hr 1,000 mL, 1,000 mL, Intravenous, at 20 Bag 06:39 PULMONARY FUNCTION TECHNICIAN mL/hr, CONTINUOUS, Starting 09/24/17 at 0545, Until Sat09/24/17 at 1245, Pre-Op Given - New Bag 09/24/2017 07:58 PULMONARY FUNCTION TECHNICIAN in this encounter
--- OUTSIDE RECORDS SUMMARY | 2017-10-13 08:07 | XMS REPORT | Encounter Summary ---
Author Author [facility] Organization [facility] Address Unknown Phone Unavailable Care Team Providers Care Professional Driver Name Role Phone Yadira Sands MD PCP Wilton Wright MD [address] [phone] Reason for Visit * Reason Comments General Question Encounter Details Date Type Department Care Team Description 10/10/[address] [facility] James Carson DO General Question [facility] Exam [address] [place] [address] [place] [address] [phone] Social History Tobacco Use Types Packs/Day Years [...] impairment: No 10/07/2017 as of this encounter Miscellaneous Notes * Telephone Encounter - Helen Trivedi, RN - 10/10/2017 1:15 PM SULFUR BURNER This pt is calling today regarding some increased abdominal pain. She had a hemorrhoidectomy on 09/24, She is calling today stating she is having some concerning abdominal pain that brings her to tears after meals and still some trouble voiding although she is able to void, only going 2-3 times a day with a bit of pain along with this. She has stopped her pain meds and has started a clear Liquid diet today in hopes of easing her abdominal pain. She has stopped taking her narcotics and her postop surgical pain she states is better and not an issue at this point. She had a small hard stool this morning. Up to today was having loose stools. I encouraged her to try miralax as opposed to milk of mag and to try a fiber supplement like Metamucil, to help with this. She said she wasnt drinking a lot of fluids, I encouraged her to drink more today. She was afraid this was an obstruction. She said she was also feeling a bit short of breath and weak and her heart was racing. I told her if she was not feeling well she needed to go to the ER to be seen. Angel. if she was feeling short of breath. This was discussed with Dr. Carson who suggested an abdominal US to eval her gallbladder. I discussed with the pt and set this up to be done at 0745 on 10/21, the morning of her follow up visit. She was ok with this plan. Pt told to be NPO for 6 hours prior to US. I encouraged her to call me back with any further questions or concerns. She verbalized understanding. in this encounter Plan of Treatment Not on fileas of this encounter Visit Diagnoses Not on filein this encounter
--- OUTSIDE RECORDS SUMMARY | 2017-10-13 08:07 | XMS REPORT | Encounter Summary ---
Author Author [facility] Organization [facility] Address Unknown Phone Unavailable Care Team Providers Care Steam Fitter Helper Name Role Phone Yadira Sands MD PCP Wilton Wright MD [address] [phone] Encounter Details Date Type Department Care Team Description 09/06/2017 PAC Office Preoperative Assessment James Carson DO Hemorrhoids, unspecified Visit Clinic [address] hemorrhoid type (Primary [address] 2006 Dx); [place] [address] [place] [address] Preop cardiovascular exam [phone] Anesthesia Record Procedure Name Responsible Anesthesia Start Time Anesthesia Stop Time Anesthesiologist HEMORRHOIDECTOMY (N/A Eduardo Colmenares MD 09/24/17 0758 09/24/17 0859 Anus) Date Time Event Comment 754 AN Equip Check 2017 0758 Anes Start 0758 An Start Data 0800 An Induction The patient was reevaluated immediately before moderate or deep sedation use and before anesthesia induction. 0802 An Intubation 0803 Anesthesia Ready 0814 Proc Start 0848 An Extubation 0858 an stop data 0858 Handoff to RN I completed my SBAR handoff to the receiving nurse. 0859 An Stop Meds * No agents on file. * No blood administrations on file. Type [...] attempted (0); LMA; 4; 1 insertion Rubio, HEAD HOLDER Rubio, HEAD HOLDER attempt; Auscultation; 09/24/17; 0848 in this encounter [...] Vital Sign Reading Time Taken Blood Pressure 139/65 09/06/2017 1:58 PM J2EE ENGINEER Pulse 69 09/06/2017 1:58 PM J2EE ENGINEER Temperature 36.5 C (97.7 F) 09/06/2017 1:58 PM J2EE ENGINEER Respiratory Rate - - Oxygen Saturation 100% 09/06/2017 1:58 PM J2EE ENGINEER Inhaled Oxygen - - Concentration Weight 71.7 kg (158 lb) 09/06/2017 1:58 PM J2EE ENGINEER Height 170.2 cm (5' 7") 09/06/2017 1:58 PM J2EE ENGINEER Body Mass Index 24.75 09/06/2017 1:58 PM J2EE ENGINEER in this encounter Functional Status Functional Status [...] impairment: No 08/19/2017 as of this encounter Instructions * Pre-Anesthesia Patient Instructions - Krystina Magaña RN - 09/06/2017 2:03 PM J2EE ENGINEER GENERAL INFORMATION Before you come to the hospital Make arrangements for a responsible adult to drive you home and stay with you for 24 hours following surgery. Bath/Shower Instructions Take a bath or shower using the special soap given to you in PAC. Use half the bottle the night before, and the other half the morning of your procedure. Use clean towels with each bath or shower. Put on clean clothes after bath or shower. Avoid using lotion and oils. If you are having surgery above the waist, wear a shirt that fastens up the front. Sleep on clean sheets if bath or shower is done the night before procedure. Leave money, credit cards, jewelry, and any other valuables at home. [facility] is not responsible for the loss or breakage of personal items. Remove nail icelandic, makeup and all jewelry (including piercings) before coming to the hospital. The morning of your procedure: brush your teeth and tongue do not smoke do not shave the area where you will have surgery What to bring to the hospital ID/ Insurance Card Heel Cover Softener card Official documents for legal guardianship Copy of your Living Will, Advanced Directives, and/or Durable Power of [place] Small bag with a few personal belongings CPAP/BiPAP machine (including all supplies) Walker,cane, or motorized scooter Cases for glasses/hearing aids/contact lens (bring solutions for contacts) Dress in clean, loose, comfortable clothing Eating or drinking before surgery Do not eat or drink anything after 11:00 p.m. the day before your procedure ( including gum, mints, candy, or chewing tobacco) OR follow the specific instructions you were given by your Surgeon. You may have WATER ONLY up to 2 hours before arriving at the hospital. Other instructions Notify your surgeon if: there is a possibility that you are you become ill with a cough, fever, sore throat, nausea, vomiting or flu- like symptoms you have any open wounds/sores that are red, painful, draining, or are new since you last saw the doctor you need to cancel your procedure Notify us at [facility]: if you need to cancel your procedure if you are going to be late Arrival at the [facility]: ? Park in the P5 parking garage located at [address], [place] [address] (Next to the [facility] [address]). ? [employer] parking is available in front of [facility] between the hours of 7:00 am and 4:00 pm Saturday through Saturday. ? If parking in the P5 garage, take the east elevators in the parking garage to the second level and walk to the entrance of the [facility]. ? Enter through the 1st floor main entrance and check in with Information Desk. ? You will be contacted by the surgery office between 2:30 pm and 4:30 pm on the last business day before your procedure to advise you of your arrival time. If you do not receive a call, you may call the Preoperative Assessment Clinic to confirm your arrival time. Before 4:30 pm, call [phone], and after 4:30 pm, call [phone]. * Pre-Anesthesia Medication Instructions - Yuval Carver, PHARMD - 09/06/2017 1:55 PM J2EE ENGINEER Formatting of this note may be different from the original. YOUR MEDICATIONS: Artificial Tear (Hypromellose) (GENTEAL MODERATE) 0.3 % [...] mouth at bedtime as needed. Indications: bleed) ondansetron (ZOFRAN) 4 mg tablet Take 1 tablet by mouth every 4 hours as needed for Nausea or Vomiting. vitamins, multi PED w/iron (MULTIVITAMINS W-IRON) chew tablet Chew 1 tablet by mouth daily. Flintstones YOUR MEDICATION INSTRUCTIONS FOR SURGERY: Before surgery Stop the following vitamins, herbals, and natural supplements 14 days before surgery: Multivitamin Stop the following medications 7 days before surgery: Anti-inflammatory medications such as ibuprofen (Advil, Motrin) and naproxen (Aleve) You may use acetaminophen (Tylenol) Morning of surgery On the morning of surgery, do NOT take these medications: Remaining vitamins/supplements (Vitamin B12, Calcium/Vitamin D) Ointments/creams/lotions Balsalazide On the morning of surgery, take ONLY these medications with a sip (1-2 ounces) of water: Eye drops as usual If needed: ondansetron Other information Before surgery, please contact the clinic pharmacist with any medicine updates or questions. E-mail: [email or web address] Before going home from the hospital, please ask your doctor when you should re- start your medicines that were stopped before surgery. in this encounter Plan of Treatment Not on fileas of this encounter Results * COMPREHENSIVE METABOLIC PANEL (09/06/2017 2:54 PM) [...] Performing Laboratory Blood [facility] [address] [place] [address] * CBC (09/06/2017 2:54 PM) Component Value [...] - 11 FL Specimen Performing Laboratory [facility] MA[facility] [address] [place] [address] in this encounter Visit Diagnoses Diagnosis Hemorrhoids, unspecified hemorrhoid type - Primary Preop cardiovascular exam Pre-operative cardiovascular examination
--- OUTSIDE RECORDS SUMMARY | 2017-10-13 08:07 | XMS REPORT | Encounter Summary ---
Author Author [facility] Organization [facility] Address Unknown Phone Unavailable Care Team Providers Care Brown Stock Washer Name Role Phone Yadira Sands MD PCP Wilton Wrihgt MD [address] [phone] Encounter Details Date Type Department Care Team Description 10/10/2017 Orders Only [facility] James Carson DO Abdominal pain, [facility] Exam [address] unspecified abdominal [address] [place] 2005 location (Primary Dx) [place] [id number] [place] [address] [phone] Social History Tobacco Use Types Packs/Day Years [...] impairment: No 10/07/2017 as of this encounter Plan of Treatment Name Priority Associated Diagnoses Order Schedule US ABDOMEN COMPLETE Routine Abdominal pain, Expected: 10/21/2017 unspecified abdominal (Approximate), Expires: location 10/10/2018 as of this encounter Visit Diagnoses Diagnosis Abdominal pain, unspecified abdominal location - Primary
--- OUTSIDE RECORDS SUMMARY | 2017-10-13 08:07 | XMS REPORT | Encounter Summary ---
Author Author [facility] Organization [facility] Address Unknown Phone Unavailable Care Team Providers Care Wardrobe Consultant Name Role Phone Yadira Sands MD PCP Wilton Wright MD [address] [phone] Reason for Visit * Auth/Cert Status Reason Specialty Diagnoses / Referred By Referred To Procedures Contact Contact Diagnoses Hemorrhoids Procedures [place] HEMORRHOIDECTOMY INT & XTRNL 2/> COLUMN/JOSEF HEMORRHOIDECTOMY Encounter Details Date Type Department Care Team Description 09/24/2017 Hospital [place] Operating Room Gabriel Carson DO Hemorrhoids Encounter [facility] [facility] [address] [place] [address] [address] [place] [address] [phone] Social History Tobacco Use Types Packs/Day Years [...] Vital Sign Reading Time Taken Blood Pressure 117/71 09/24/2017 10:00 AM CORPORATE HUMAN RESOURCES MANAGER Pulse 61 09/24/2017 10:00 AM CORPORATE HUMAN RESOURCES MANAGER Temperature 36.5 C (97.7 F) 09/24/2017 10:00 AM CORPORATE HUMAN RESOURCES MANAGER Respiratory Rate - - Oxygen Saturation 97% 09/24/2017 10:00 AM CORPORATE HUMAN RESOURCES MANAGER Inhaled Oxygen - - Concentration Weight 69 kg (152 lb 1.9 oz) 09/24/2017 6:26 AM CORPORATE HUMAN RESOURCES MANAGER Height 170.2 cm (5' 7") 09/24/2017 6:26 AM CORPORATE HUMAN RESOURCES MANAGER Body Mass Index 23.82 09/24/2017 6:26 AM CORPORATE HUMAN RESOURCES MANAGER in this encounter Functional Status Functional Status [...] impairment: No 08/19/2017 as of this encounter Medications at Time of Discharge Medication Sig. Disp. Refills Start Date End Date acetaminophen (TYLENOL) Take 2 tablets by mouth 0 09/24/2017 325 mg tablet every 6 hours. Artificial Tear Apply 1 drop to both eyes (Hypromellose) (GENTEAL twice daily. MODERATE) 0.3 % drop balsalazide(+) (COLAZAL) Take 3 Caps by mouth 270 Cap 5 02/18/2017 750 mg cap three times daily. Calcium-Cholecalciferol Take 1 tablet by mouth (D3) (CALCIUM 600 + D) twice daily. 600 mg(1,500mg) -400 unit tab cyanocobalamin (vitamin Dissolve 1 tablet by B-12) 1,500 mcg TbDi mouth three times weekly. Administer on Saturday, Saturday and Saturday cyclosporine (RESTASIS Apply 1 drop to both eyes MULTIDOSE) 0.05 % drop twice daily. ferrous sulfate (FEOSOL, Take 1 Tab by mouth 90 Tab 1 07/23/2016 FEROSUL) 325 mg (65 mg daily. iron) tabletIndications: Iron deficiency anemia due to chronic blood loss magnesium hydroxide (MILK Take 30 mL by mouth every 473 mL 0 2017 OF MAGNESIA) 400 mg/5 mL 24 hours as needed. oral suspension ondansetron (ZOFRAN) 4 mg Take 1 tablet by mouth 4 tablet 0 2016 tabletIndications: every 4 hours as needed Hemorrhoids, unspecified for Nausea or Vomiting. hemorrhoid type oxyCODONE (ROXICODONE, Take 1 tablet by mouth 60 tablet 0 09/24/2017 OXY-IR) 5 mg tablet every 4 hours as needed for Pain vitamins, multi PED Chew 1 tablet by mouth w/iron (MULTIVITAMINS daily. Flintstones W-IRON) chew tablet as of this encounter Progress Notes * Radha Nevarez RN - 09/24/2017 7:06 AM CORPORATE HUMAN RESOURCES MANAGER Pt would like to have prescriptions filled at outpatient pharmacy. in this encounter H&P Notes * Jackie Garcia MD - 09/24/2017 5:45 AM CORPORATE HUMAN RESOURCES MANAGER Formatting of this note may be different from the original. Surgery Oncology History and Physical Examination 09/24/2017 Patient: Faith Elias Admission Date: 09/24/2017, LOS: 0 days Date of Service: September 24, 2017 Attending Surgeon: Gabriel Carson DO H&P Performed by: Jackie Garcia MD ASSESSMENT: 57 y.o. female with UC, hemorrhoids Principal Problem: Hemorrhoids PLAN: - Risks of procedure presented. Elects to proceed with operation today. - Informed consent obtained. - To OR for hemorrhoidectomy ooDiscussed plan of care with staff surgeon, Dr. Carson, who directed plan of care. __ HPI: Ms Elias is a 57 year old female with history of ulcerative colitis currently treating with Colazal and follows with Dr. Wright. Patient is referred to clinic for evaluation of rectal pain and bleeding. She reports pain during and after bowel movements. The pain is significant enough she sits on ice packs. Patient reports bright red blood noted in the toilet water as well as passing clots. She notes that when she eats a higher fiber diet there is less bleeding. Taking probiotics, but no fiber supplement. She denies prolapsing tissue that she manually reduces. Patient has 3-4 bowel movements per day. Currently feels her ulcerative colitis is flaring and planning to increase medication. Surgical History: rubber band ligation and hemorrhoidopexy. Past Medical History: Diagnosis Date Malaise and fatigue Ulcerative colitis (HCC) 1999 Past Surgical History: Procedure Laterality Date WISDOM TEETH EXTRACTION 1985 HEMORRHOIDECTOMY 1999 POSSIBLY USED RUBBER BANDS HEMORRHOIDECTOMY 2011 POSSIBLY DID A STAPLE LIGATION HX ENDOSCOPY 02/09/2014 [place] COLONOSCOPY FLX DX W/COLLJ SPEC WHEN PFRMD N/A 08/30/2016 COLONOSCOPY performed by CHARMAINE Pulido at ENDO/GI COLONOSCOPY 08/30/2016 COLONOSCOPY EXCISION LESION performed by CHARMAINE Pulido at ENDO/GI COLONOSCOPY 08/30/2016 COLONOSCOPY BIOPSY performed by CHARMAINE Pulido at ENDO/GI SECTION 1984 & 1990 Medications: No current facility-administered medications on file prior to encounter. Current Outpatient Prescriptions on File Prior to Encounter Medication Sig Dispense Refill Artificial Tear (Hypromellose) (GENTEAL MODERATE) 0.3 % drop Apply 1 drop to both eyes twice daily. balsalazide(+) (COLAZAL) 750 mg cap Take 3 Caps by mouth three times daily. 270 Cap 5 Calcium-Cholecalciferol (D3) (CALCIUM 600 + D) 600 mg(1,500mg) -400 unit tab Take 1 tablet by mouth twice daily. ferrous sulfate (FEOSOL, FEROSUL) 325 mg (65 mg iron) tablet Take 1 Tab by mouth daily. (Patient taking differently: Take 325 mg by mouth at bedtime as needed. Indications: bleed) 90 Tab 1 ondansetron (ZOFRAN) 4 mg tablet Take 1 tablet by mouth every 4 hours as needed for Nausea or Vomiting. 4 tablet 0 vitamins, multi PED w/iron (MULTIVITAMINS W-IRON) chew tablet Chew 1 tablet by mouth daily. Flintstones Allergies: Review of patient's allergies indicates no known allergies. Social History Social History Marital status: Spouse [...] Concern Not on file Social History Narrative Family History Problem Relation Age of Onset Lung Disease Mother Heart Disease Father ROS: ROS Constitutional: Negative. Negative for chills and fever. HENT: Negative. Eyes: Negative. Respiratory: Negative. Cardiovascular: Negative. Gastrointestinal: Positive for anal bleeding and rectal pain. Negative for abdominal pain, blood in stool, constipation, diarrhea, nausea and vomiting. Genitourinary: Negative. Musculoskeletal: Negative. Skin: Negative. Neurological: Negative. Psychiatric/Behavioral: Negative. All other systems reviewed and are negative. Vitals: Vital Signs: Last Filed In 24 Hours Vital Signs: 24 Hour Range Intake/Output: No intake or output data in the 24 hours ending 09/24/17 0546 Physical Exam: Constitutional: She is oriented to person, place, and time. She appears well- developed and well-nourished. No distress. HENT: Head: Normocephalic. Eyes: Conjunctivae are normal. No scleral icterus. Neck: Normal range of motion. Cardiovascular: Normal rate. Pulmonary/Chest: Effort normal. Genitourinary: Genitourinary Comments: External examination: patient has grade IV hemorrhoids in all three quadrants. Musculoskeletal: Normal range of motion. Neurological: She is alert and oriented to person, place, and time. Skin: Skin is warm and dry. No rash noted. She is not diaphoretic. No erythema. No pallor. Psychiatric: She has a normal mood and affect. Her behavior is normal. Judgment and thought content normal. Nursing note and vitals reviewed. Lab/Radiology/Other Diagnostic Tests: No results for input(s): HGB, HCT, WBC, PLTCT, NA, K, CL, CO2, BUN, CR, GLU, CA , MG, PO4, ALBUMIN, TOTPROT, TOTBILI, AST, ALT, ALKPHOS, JALEEL, LIPASE, PREALB, INR, PT, PTT in the last 72 hours. Jackie Garcia MD Pager: [phone] in this encounter Miscellaneous Notes * Operative Report (DICTATED ONLY) - Gabriel Carson DO - 09/24/2017 10:37 AM CORPORATE HUMAN RESOURCES MANAGER Formatting of this note may be different from the original. [facility] [address] [place] [address]. [place], [place] [address] PATIENT NAME: FAITH ELIAS MR#/PT#: [id number] Page 3 OPERATIVE REPORT DATE OF OPERATION: 09/24/2017 SURGEON: Gabriel Carson DO SUPERVISOR HYDROCHLORIC AREA(S): Jackie Garcia PREOPERATIVE DIAGNOSIS: Grade 4 internal hemorrhoids. POSTOPERATIVE DIAGNOSIS: Same. OPERATIVE PROCEDURE: Hemorrhoidectomy, complex. ANESTHESIA: General endotracheal anesthesia. INDICATIONS FOR OPERATIVE PROCEDURE: Ms. Elias is a very pleasant female, who has had difficulty with ulcerative colitis for sometime now. She has had a long history of difficult bowel movements and actually presents to me with prolapsing tissue from her rectum. Upon examination in the clinic, even with just effacement of her anal canal, she had grade 4 internal hemorrhoids in all 3 quadrants, which easily oozed to the touch. Given these findings, I recommended hemorrhoidectomy. DESCRIPTION AND FINDINGS OF OPERATIVE PROCEDURE: Once informed consent was obtained from the patient, the patient was taken to the operating room, placed in lithotomy position under appropriate general endotracheal anesthesia. Her perineum was prepped with Betadine prep and draped in the usual sterile fashion. We began with a medium Hill-Gamino anoscope, which was introduced and all 3 hemorrhoid columns were examined. The left lateral was the largest and quite protuberant. Digital rectal exam revealed no masses. Once the anoscope was reintroduced, I started on the left side. A [id number] 3-0 chromic stitch was placed at the apex of the hemorrhoid complex. The anoderm was incised with a 15-blade scalpel and retracted so as to dissect off the internal anal sphincter. The internal anal sphincter fibers were identified and preserved throughout the resection. Once the hemorrhoid was freed from the internal anal sphincter, it was transected. Then, the 3-0 chromic stitch was used in a running locking fashion to close and reapproximate the anoderm out to the skin. The wound was irrigated and it was sectioned and hemostasis was excellent. I then placed my attention to the right posterior, where similar technique was used. A 3-0 chromic base stitch was placed and the anoderm was incised. The internal sphincter was identified and dissected free of the hemorrhoid complex and the hemorrhoid was transected. The 3-0 chromic was then used in a running locking fashion to reapproximate the anoderm. At this point, the medium Hill- Gamino retractor would be placed, but there was some minimal resistance to this. The right anterior hemorrhoid complex at that point in time was very minimal in size. Therefore, rubber band ligation of this location was performed without any difficulty. The raised pile above rubber band was injected with 0.25 percent Marcaine and 1 percent lidocaine mix. 40 mL of Exparel were injected circumferentially around the anal canal without any difficulty. The patient tolerated the procedure well. I was present for the entirety of the procedure. ESTIMATED BLOOD LOSS: Less than 100 mL. SPECIMENS REMOVED: Hemorrhoid sent to Pathology. COMPLICATIONS: None. DRAINS: None. ATTESTATION I performed this procedure with a resident. and I was present for the entire procedure. Staff name: Gabriel Carson DO Date: 09/25/2017 Gabriel Carson DO JA / MEDQ /[id number] cc: - Gabriel Carson DO * Procedures (Immed Post or Bedside) - Jackie Garcia MD - 09/24/2017 8:43 AM CORPORATE HUMAN RESOURCES MANAGER Formatting of this note may be different from the original. Brief Operative Note Name: Faith Elias is a 57 y.o. female : 1960 DATE OF OPERATION: 09/24/2017 Date: 09/24/2017 Preoperative Dx: Hemorrhoids [K64.9] Post-op Diagnosis * Hemorrhoids [K64.9] Procedure(s): HEMORRHOIDECTOMY Anesthesia Type: General Surgeon(s) and Role: * Jackie Garcia MD - Resident - Assisting * Gabriel Carson DO - Primary Findings: Large Grade IV left lateral and R posterior hemorrhoids s/p excision ; rubber band ligation of R anterior hemorrhoid Estimated Blood Loss: No blood loss documented. Specimen(s) Removed/Disposition: ID Type Source Tests Collected by Time Destination 1 : Tissue Hemorrhoids SURGICAL PATHOLOGY Gabriel Carson DO 2017 0820 Complications: None Implants: None Drains: None Disposition: PACU - stable Jackie Garcia MD Pager [phone] in this encounter Plan of Treatment Name Priority Associated Diagnoses Order Schedule SURGICAL PATHOLOGY Routine Hemorrhoids ONCE for 1 Occurrences starting 09/24/2017 as of this encounter Procedures Procedure Name Priority Date/Time Associated Diagnosis Comments ECG-SCAN 09/25/2017 Results for this 3:52 PM CORPORATE HUMAN RESOURCES MANAGER procedure are in the results section. ECG-SCAN 09/25/2017 Results for this 3:52 PM CORPORATE HUMAN RESOURCES MANAGER procedure are in the results section. HEMORRHOIDECTOMY 09/24/2017 Hemorrhoids 8:00 AM CORPORATE HUMAN RESOURCES MANAGER in this encounter Results * ECG-SCAN (09/25/2017 3:52 PM) Narrative Ordered by an unspecified provider. * ECG-SCAN (09/25/2017 3:52 PM) Narrative Ordered by an unspecified provider. * SURGICAL PATHOLOGY (09/24/2017 9:54 AM) Component Value Ref Range PATHOLOGY REPORT [facility] [email or web address] Department of Pathology and Laboratory Medicine [address] [place] [address] Surgical Pathology Office: [phone] SURGICAL PATHOLOGY REPORT NAME: FAITH ELIAS SURG PATH #: [id number] MR #: [id number] SPECIMEN CLASS: SCA BILLING #: [id number] ALT ID #: LOCATION: [facility] DATE OF PROCEDURE: 09/24/2017 AGE: 57 SEX: [...] this report. +++ +++ CHARMAINE Villarreal Resident palionel/09/25/2017 ################################################## ###################### Material Received: A: hemorrhoids History: 57-year-old female with a history of hemorrhoids. Gross Description: A. Fixative: Formalin Labeled: "hemorrhoids" Dimensions: 4.2 x 3.0 x 1.1 cm aggregate of marroquin-pink tissue fragments. Cassette A1- Proof Clerk sections of hemorrhoid. (ksh) 09/24/2017 Specimen Performing Laboratory [facility] RESULTS in this encounter Visit Diagnoses Diagnosis Hemorrhoids - Primary Unspecified hemorrhoids without mention of complication Admitting Diagnoses Diagnosis Hemorrhoids Unspecified hemorrhoids without mention of complication Administered Medications Medication Order MAR Action Action Date Dose Rate Site acetaminophen (OFIRMEV) 1,000 mg Given - New 09/24/2017 1,000 mg 400 mL /hr injection 100 mL Bag 09:11 CORPORATE HUMAN RESOURCES MANAGER 1,000 mg, Intravenous, 100 mL, Administer over 15 Minutes, ONCE, 1 dose, Sat09/24/17 at 0900, PACU (only) bupivacaine liposome (PF) (EXPAREL) 266 Given 09/24/2017 20 mL Anus mg/20 mL (13.3 mg/mL) injection 20 mL 08:33 CORPORATE HUMAN RESOURCES MANAGER 20 mL (266 mg), SEE ADMIN INSTRUCTIONS, ONCE IN OR, 1 dose, Sat09/24/17 at 0815, Inject slowly into tissues with trained technique. Note: Bupivacaine, ropivacaine, and lidocaine contraindicated within 96 hours of administration of this drug. Apply Exparel wristband to patient wrist with date and time of Exparel administration. DO NOT remove wristband for 96 hours from date and time administered. >>>>>>>>>>>>>>>EXPAREL WRISTBAND REQUIRED<<<<<<<<<<<<<<< NOTE: This is a HIGH ALERT Medication. fentaNYL citrate PF (SUBLIMAZE) Given 09/24/2017 25 mcg injection 50 mcg 09:08 CORPORATE HUMAN RESOURCES MANAGER 50 mcg, Intravenous, EVERY 5 MIN PRN, 4 doses, Starting 09/24/17 at 0858, Until 09/24/17 at 1245, Pain Injectable, For Pain Score 7-10, Maximum total dose of 200 mcg Hold for RR < 10 Given 09/24/2017 25 mcg 09:15 CORPORATE HUMAN RESOURCES MANAGER oxyCODONE (ROXICODONE, OXY-IR) tablet Given 09/24/2017 10 mg 5-10 mg 09:28 CORPORATE HUMAN RESOURCES MANAGER 5-10 mg, Oral, ONCE PRN, 1 dose, Starting e 09/24/17 at 0858, Until 09/24/17 at 2359, Pain PO, For Pain Score <4, PACU (only) sodium chloride 0.9 % infusion Given - New 09/24/2017 1,000 mL 20 mL/ hr 1,000 mL, 1,000 mL, Intravenous, at 20 Bag 06:39 CORPORATE HUMAN RESOURCES MANAGER mL/hr, CONTINUOUS, Starting 09/24/17 at 0545, Until Sat09/24/17 at 1245, Pre-Op Given - New Bag 09/24/2017 07:58 CORPORATE HUMAN RESOURCES MANAGER SODIUM CHLORIDE 0.9 % IV SOLP (Cabinet Override) NOW, 1 dose, 09/24/17 at 0545, Created by cabinet override
--- OUTSIDE RECORDS SUMMARY | 2017-10-13 08:07 | XMS REPORT | Encounter Summary ---
Author Author [facility] Organization [facility] Address Unknown Phone Unavailable Care Team Providers Care Supply Cataloguer Name Role Phone Yadira Sands MD PCP Wilton Wright MD [address] [phone] Encounter Details Date Type Department Care Team Description 09/24/2017 Procedure [place] Operating Room [address] [place] [id number] Social History Tobacco Use Types Packs/Day Years [...]
--- OUTSIDE RECORDS SUMMARY | 2017-10-13 08:07 | XMS REPORT | Encounter Summary ---
Author Author [facility] Organization [facility] Address Unknown Phone Unavailable Care Team Providers Care Chain Saw Mechanic Name Role Phone Yadira Sands MD PCP Wilton Wright MD [address] [phone] Reason for Visit * Auth/Cert Status Reason Specialty Diagnoses / Referred By Referred To Procedures Contact Contact Diagnoses Hemorrhoids Procedures [place] HEMORRHOIDECTOMY INT & XTRNL 2/> COLUMN/JOSEF HEMORRHOIDECTOMY Encounter Details Date Type Department Care Team Description 09/24/2017 Surgery [place] Operating Room Gabriel Carson DO HEMORRHOIDECTOMY [address] [facility] [address] [place] [address] [address] [place] [address] [phone] Social History Tobacco Use Types Packs/Day Years [...] Taken Blood Pressure 117/71 09/24/2017 10:00 AM PROVIDER NETWORK ANALYST Pulse 61 09/24/2017 10:00 AM PROVIDER NETWORK ANALYST Temperature 36.5 C (97.7 F) 09/24/2017 10:00 AM PROVIDER NETWORK ANALYST Respiratory Rate - - Oxygen Saturation 97% 09/24/2017 10:00 AM PROVIDER NETWORK ANALYST Inhaled Oxygen - - Concentration Weight 69 kg (152 lb 1.9 oz) 09/24/2017 6:26 AM PROVIDER NETWORK ANALYST Height 170.2 cm (5' 7") 09/24/2017 6:26 AM PROVIDER NETWORK ANALYST Body Mass Index 23.82 09/24/2017 6:26 AM PROVIDER NETWORK ANALYST in this encounter Functional Status Functional Status [...] Radha Nevarez RN - 09/24/2017 7:06 AM PROVIDER NETWORK ANALYST Pt would like to have prescriptions filled at outpatient pharmacy. in this encounter H&P Notes * Jackie Garcia MD - 09/24/2017 5:45 AM PROVIDER NETWORK ANALYST Formatting of this note may be different [...] DID A STAPLE LIGATION HX ENDOSCOPY 02/09/2014 [place] COLONOSCOPY FLX DX W/COLLJ SPEC WHEN PFRMD [...] last 72 hours. Jackie Garcia MD Pager: [phone] in this encounter Miscellaneous Notes * Operative Report (DICTATED ONLY) - Gabriel Carson DO - 09/24/2017 10:37 AM PROVIDER NETWORK ANALYST Formatting of this note may be different from the original. [facility] [address] [place] [address]. [place], [place] [address] PATIENT NAME: FAITH ELIAS MR#/PT#: [id number] Page 3 OPERATIVE REPORT DATE OF OPERATION: 09/24/2017 SURGEON: Gabriel Carson DO AURIST(S): Jackie Garcia PREOPERATIVE DIAGNOSIS: Grade 4 internal [...] I started on the left side. A [id number] 3-0 chromic stitch was placed at the [...] 09/25/2017 Gabriel Carson DO JA / MEDQ /[id number] cc: - Gabriel Carson DO * Procedures (Immed Post or Bedside) - Jackie Garcia MD - 09/24/2017 8:43 AM PROVIDER NETWORK ANALYST Formatting of this note may be different [...] PACU - stable Jackie Garcia MD Pager [phone] in this encounter Plan of Treatment Name Priority Associated Diagnoses Order Schedule SURGICAL PATHOLOGY Routine Hemorrhoids ONCE for 1 Occurrences starting 09/24/2017 as of this encounter Procedures Procedure Name Priority Date/Time Associated Diagnosis Comments ECG-SCAN 09/25/2017 Results for this 3:52 PM PROVIDER NETWORK ANALYST procedure are in the results section. ECG-SCAN 09/25/2017 Results for this 3:52 PM PROVIDER NETWORK ANALYST procedure are in the results section. HEMORRHOIDECTOMY 09/24/2017 Hemorrhoids 8:00 AM PROVIDER NETWORK ANALYST in this encounter Results * ECG-SCAN (09/25/2017 3:52 PM) Narrative Ordered by an unspecified provider. * ECG-SCAN (09/25/2017 3:52 PM) Narrative Ordered by an unspecified provider. * SURGICAL PATHOLOGY (09/24/2017 9:54 AM) Component Value Ref Range PATHOLOGY REPORT [facility] [email or web address] Department of Pathology and Laboratory Medicine [address] [place] [address] Surgical Pathology Office: [phone] SURGICAL PATHOLOGY REPORT NAME: FAITH ELIAS SURG PATH #: [id number] MR #: [id number] SPECIMEN CLASS: [facility]CA BILLING #: [id number] ALT ID #: LOCATION: [facility] DATE OF PROCEDURE: 09/24/2017 AGE: 57 SEX: [...] aggregate of marroquin-pink tissue fragments. Cassette A1- Wildlife Control Operator sections of hemorrhoid. (ksh) 09/24/2017 Specimen Performing Laboratory [facility] RESULTS in this encounter Visit Diagnoses Diagnosis Hemorrhoids Unspecified hemorrhoids without mention of complication Admitting Diagnoses Diagnosis Hemorrhoids Unspecified hemorrhoids without mention of complication Administered Medications Medication Order MAR Action Action Date Dose Rate Site acetaminophen (OFIRMEV) 1,000 mg Given - New 09/24/2017 1,000 mg 400 mL /hr injection 100 mL Bag 09:11 PROVIDER NETWORK ANALYST 1,000 mg, Intravenous, 100 mL, Administer over 15 Minutes, ONCE, 1 dose, Sat09/24/17 at 0900, PACU (only) bupivacaine liposome (PF) (EXPAREL) 266 Given 09/24/2017 20 mL Anus mg/20 mL (13.3 mg/mL) injection 20 mL 08:33 PROVIDER NETWORK ANALYST 20 mL (266 mg), SEE ADMIN INSTRUCTIONS, [...] 09/24/2017 25 mcg injection 50 mcg 09:08 PROVIDER NETWORK ANALYST 50 mcg, Intravenous, EVERY 5 MIN PRN, 4 doses, Starting 09/24/17 at 0858, Until 09/24/17 at 1245, Pain Injectable, For Pain Score 7-10, Maximum total dose of 200 mcg Hold for RR < 10 Given 09/24/2017 25 mcg 09:15 PROVIDER NETWORK ANALYST oxyCODONE (ROXICODONE, OXY-IR) tablet Given 09/24/2017 10 mg 5-10 mg 09:28 PROVIDER NETWORK ANALYST 5-10 mg, Oral, ONCE PRN, 1 dose, Starting e 09/24/17 at 0858, Until Tu09/24/17 at 2359, Pain PO, For Pain Score <4, PACU (only) sodium chloride 0.9 % infusion Given - New 09/24/2017 1,000 mL 20 mL/ hr 1,000 mL, 1,000 mL, Intravenous, at 20 Bag 06:39 PROVIDER NETWORK ANALYST mL/hr, CONTINUOUS, Starting 09/24/17 at 0545, Until Sat09/24/17 at 1245, Pre-Op Given - New Bag 09/24/2017 07:58 PROVIDER NETWORK ANALYST SODIUM CHLORIDE 0.9 % IV SOLP (Cabinet Override) NOW, 1 dose, 09/24/17 at 0545, Created by cabinet override
--- OUTSIDE RECORDS SUMMARY | 2017-10-13 08:08 | XMS REPORT | Encounter Summary ---
Author Author [facility] Organization [facility] Address Unknown Phone Unavailable Care Team Providers Care Piano Regulator Name Role Phone Yadira Sands MD PCP Wilton Wright MD [address] [phone] Reason for Visit * Reason Comments New Patient Hemorrhoids * Consult, Test & Treat (Routine) Status Reason Specialty Diagnoses / Referred By Referred To Procedures Contact Contact Pending Review Specialty Colon and Rectal Diagnoses Wilton Wright MD [place], John H, Services Surgery / General Hemorrhoids, [address] DO Required Surgery unspecified Blvd [address] hemorrhoid type [place], [place] [address] [place], [place] Phone: [phone] Phone: Encounter Details Date Type Department Care Team Description 08/19/2017 Office Visit [facility] Wilton Wright MD Hemorrhoids, unspecified Physicians - Surgery [address] hemorrhoid type ([place] [address] Dx) [address] [phone] [place] [address] A [phone] James steele, DO [address] [place] [address] [phone] Social History Tobacco Use Types Packs/Day Years Used Date Former Smoker Alcohol Use Drinks/Week oz/Week Comments Yes Sex Assigned at Date Recorded Not on file as of this encounter Last Filed Vital Signs Vital Sign Reading Time Taken Blood Pressure 163/84 08/19/2017 8:29 AM [employer]AL [employer]ER Pulse 77 08/19/2017 8:29 AM [employer]ER Temperature 36.3 C (97.4 F) 08/19/2017 8:29 AM COAL MINER Respiratory Rate 14 08/19/2017 8:29 AM COAL MINER Oxygen Saturation - - Inhaled Oxygen - - Concentration Weight 71.8 kg (158 lb 3.2 oz) 08/19/2017 8:29 AM COAL MINER Height 172.7 cm (5' 7.99") 08/19/2017 8:29 AM COAL MINER Body Mass Index 24.06 08/19/2017 8:29 AM COAL MINER in this encounter Functional Status Functional Status [...] 08/19/2017 as of this encounter Instructions * Patient Instructions - Helen Trivedi RN - 08/19/2017 9:00 AM CO[employer]ER Spoke with Ms. Faith Elias regarding hemorrhoidectomy any other required procedures. The patient was informed that she would receive a call from the surgery department the day prior to surgery to confirm time of arrival. The patient was given detailed instructions about where and when to check in the day of surgery. Pre op paperwork describing the pre operative instructions has been given to the patient and reviewed in detail. Informed pt that we will see her 2 weeks post op. The patient has been informed of the medications that need to be stopped 7-10 days prior to surgery and the NPO requirements starting at midnight the night before surgery. Also informed that a dray driver will need to accompany pt due to the influence of anesthesia including narcotics post procedure. Informed pt that the PAT department will call to schedule pre operative appointment which will include lab work, medication review, health history, anesthesia/ surgical history, and any other additional recommended testing. The patient verbalized understanding of the information given. The patient was encouraged to call with any questions or concerns. in this encounter Progress Notes * YamilethJames bradshawDO - 08/19/2017 9:00 AM COAL MINER Formatting of this note may be different from the original. Date of Service: 08/19/2017 Subjective Reason for Visit: New Patient and Hemorrhoids Faith Elias is a 57 y.o. female. No matching staging information was found for the patient. History of Present Illness Ms Elias is a 57 year old [...] Surgical History: rubber band ligation and hemorrhoidopexy. Review of Systems Constitutional: Negative. Negative for chills and fever. HENT: Negative. Eyes: Negative. Respiratory: Negative. Cardiovascular: Negative. Gastrointestinal: Positive for anal bleeding and rectal pain. Negative for abdominal pain, blood in stool, constipation, diarrhea, nausea and vomiting. Genitourinary: Negative. Musculoskeletal: Negative. Skin: Negative. Neurological: Negative. Psychiatric/Behavioral: Negative. All other systems reviewed and are negative. Past Medical History: Diagnosis Date Malaise and fatigue Ulcerative colitis (HCC) Past Surgical History: Procedure Laterality Date HX ENDOSCOPY 02/09/2014 [place] COLONOSCOPY FLX DX W/COLLJ SPEC WHEN PFRMD N/A 08/30/2016 COLONOSCOPY performed by CHARMAINE Pulido at ENDO/GI COLONOSCOPY 08/30/2016 COLONOSCOPY EXCISION LESION performed by CHARMAINE Pulido at ENDO/GI COLONOSCOPY 08/30/2016 COLONOSCOPY BIOPSY performed by CHARMAINE Pulido at ENDO/GI HX SECTION 1990 Family History Problem Relation Age of Onset Lung Disease Mother Heart Disease Father Social History Social History Marital status: Spouse name: N/A Number of children: N/A Years of education: N/A Social History Main Topics Smoking status: Former Smoker Smokeless tobacco: None Alcohol use Yes Drug use: No Sexual activity: Not Asked Other Topics Concern None Social History Narrative Objective: Artificial Tear (Hypromellose) (GENTEAL MODERATE) 0.3 % drop Place into or around eye(s). balsalazide(+) (COLAZAL) 750 mg cap Take 3 Caps by mouth three times daily. Calcium-Cholecalciferol (D3) (CALCIUM 600 + D) 600 mg(1,500mg) -400 unit tab Take 2 Tabs by mouth. ferrous sulfate (FEOSOL, FEROSUL) 325 mg (65 mg iron) tablet Take 1 Tab by mouth daily. mesalamine (ROWASA) 4 gram/60 mL enema Insert or Apply 4 g to rectal area as directed at bedtime daily. Indications: CHRONIC ULCERATIVE RECTOSIGMOIDITIS vitamins, multi PED w/iron (MULTIVITAMINS W-IRON) chew tablet Take 1 Tab by mouth daily. Vitals: 08/19/17 0829 BP: 163/84 Pulse: 77 Resp: 14 Temp: 36.3 C (97.4 F) TempSrc: Oral Weight: 71.8 kg (158 lb 3.2 oz) Height: 172.7 cm (67.99") Body mass index is 24.06 kg/(m^2). Physical Exam Constitutional: She is oriented to [...] content normal. Nursing note and vitals reviewed. Assessment and Plan: 57 year old female with history of rubber band ligation and pexy, now with grade IV hemorrhoids. Given options for watchful waiting versus hemorrhoidectomy. Hemorrhoidectomy is a definitive treatment, but recovery can be difficult and patient will likely have two weeks with significant post operative pain. The details of the operation including its risks and benefits were explained to the patient, who understood and elected for surgery. She is aware that given her history of ulcerative colitis her rate of healing will likely be slow. I answered all of the patient's questions to their satisfaction and a consent form was signed. In the presence of James Carson DO, I have taken down these notes, Gurvinder Mondragon. 08/19/2017 8:35 AM in this encounter Plan of Treatment Not on fileas of this encounter Visit Diagnoses Diagnosis Hemorrhoids, unspecified hemorrhoid type - Primary
--- OUTSIDE RECORDS SUMMARY | 2017-10-13 08:08 | XMS REPORT | Continuity of Care Document ---
Author Author [facility] Organization [facility] Address Unknown Phone Unavailable Allergies There is no data. Medications There is no data. Problems Date Dx Coded Attending Type Code Diagnosis Diagnosed By 01/05/2016 EDBBIE GRANT, GARY Lomeli Ot Z12.31 ENCNTR SCREEN MAMMOGRAM FOR MALIGNANT NE 01/06/2016 GARY LEWIS MD, Ot Z12.31 ENCNTR SCREEN MAMMOGRAM FOR MALIGNANT NE 01/23/2016 GARY LEWIS MD, Ot Z12.31 ENCNTR SCREEN MAMMOGRAM FOR MALIGNANT NE Procedures There is no data. Results Test Result Range Complete blood count (CBC) with automated white blood cell (WBC) differential - 10/11/17 10:45 Blood leukocytes automated count (number/volume) 4.3 10*3/uL 4.3-11.0 Blood erythrocytes automated count (number/volume) 4.03 10*6/uL 4.35-5.85 Venous blood hemoglobin measurement (mass/volume) 11.9 g/dL 11.5-16.0 Blood hematocrit (volume fraction) 36 % 35-52 Automated erythrocyte mean corpuscular volume 89 [foz_us] 80-99 Automated erythrocyte mean corpuscular hemoglobin (mass per erythrocyte) 30 pg 25-34 Automated erythrocyte mean corpuscular hemoglobin concentration measurement ( mass/volume) 33 g/dL 32-36 Automated erythrocyte distribution width ratio 13.0 % 10.0-14.5 Automated blood platelet count (count/volume) 476 10*3/uL 130-400 Automated blood platelet mean volume measurement 9.0 [foz_us] 7.4-10.4 Automated blood neutrophils/100 leukocytes 71 % 42-75 Automated blood lymphocytes/100 leukocytes 19 % 12-44 Blood monocytes/100 leukocytes 8 % 0-12 Automated blood eosinophils/100 leukocytes 1 % 0-10 Automated blood basophils/100 leukocytes 1 % 0-10 Blood neutrophils automated count (number/volume) 3.1 10*3 1.8-7.8 Blood lymphocytes automated count (number/volume) 0.8 10*3 1.0-4.0 Blood monocytes automated count (number/volume) 0.4 10*3 0.0-1.0 Automated eosinophil count 0.0 10*3/uL 0.0-0.3 Automated blood basophil count (count/volume) 0.0 10*3/uL 0.0-0.1 Comprehensive metabolic panel - 10/11/17 10:45 Serum or plasma sodium measurement (moles/volume) 139 mmol/L 135-145 Serum or plasma potassium measurement (moles/volume) 4.2 mmol/L 3.6-5.0 Serum or plasma chloride measurement (moles/volume) 104 mmol/L 98-107 Carbon dioxide 23 mmol/L 21-32 Serum or plasma anion gap determination (moles/volume) 12 mmol/L 5-14 Serum or plasma urea nitrogen measurement (mass/volume) 7 mg/dL 7-18 Serum or plasma creatinine measurement (mass/volume) 0.75 mg/dL 0.60-1.30 Serum or plasma urea nitrogen/creatinine mass ratio 9 NRG Serum or plasma creatinine measurement with calculation of estimated glomerular filtration rate > NRG Serum or plasma glucose measurement (mass/volume) 104 mg/dL 70-105 Serum or plasma calcium measurement (mass/volume) 9.0 mg/dL 8.5-10.1 Serum or plasma total bilirubin measurement (mass/volume) 0.4 mg/dL 0.1-1.0 Serum or plasma alkaline phosphatase measurement (enzymatic activity/volume) 101 U/L 40-136 Serum or plasma aspartate aminotransferase measurement (enzymatic activity/ volume) 18 U/L 5-34 Serum or plasma alanine aminotransferase measurement (enzymatic activity/volume ) 11 U/L 0-55 Serum or plasma protein measurement (mass/volume) 7.5 g/dL 6.4-8.2 Serum or plasma albumin measurement (mass/volume) 3.6 g/dL 3.2-4.5 Magnesium - 10/11/17 10:45 Magnesium 2.0 mg/dL 1.8-2.4 Complete urinalysis with reflex to culture - 10/11/17 13:23 Urine color determination YELLOW NRG Urine clarity determination CLEAR NRG Urine pH measurement by test strip 8 5-9 Specific gravity of urine by test strip 1.010 1.016- 1.022 Urine protein assay by test strip, semi-quantitative NEGATIVE NEGATIVE Urine glucose detection by automated test strip NEGATIVE NEGATIVE Erythrocytes detection in urine sediment by light microscopy NEGATIVE NEGATIVE Urine ketones detection by automated test strip 4+ NEGATIVE Urine nitrite detection by test strip NEGATIVE NEGATIVE Urine total bilirubin detection by test strip NEGATIVE NEGATIVE Urine urobilinogen measurement by automated test strip (mass/volume) NORMAL NORMAL Urine leukocyte esterase detection by dipstick NEGATIVE NEGATIVE Automated urine sediment erythrocyte count by microscopy (number/high power field) NONE NRG Automated urine sediment leukocyte count by microscopy (number/high power field ) NONE NRG Bacteria detection in urine sediment by light microscopy NEGATIVE NRG Squamous epithelial cells detection in urine sediment by light microscopy NONE NRG Crystals detection in urine sediment by light microscopy NONE NRG Casts detection in urine sediment by light microscopy NONE NRG Mucus detection in urine sediment by light microscopy NEGATIVE NRG Complete urinalysis with reflex to culture NO NRG Encounters ACCT No. Visit Date/Time Discharge Status Pt. Type Provider Facility Loc./Unit Complaint [id number] 01/05/2016 11:21:00 01/05/2016 23:59:59 CLS Outpatient DEBBIE GRANT, GARY Lomeli [facility] RAD [id number] 10/11/2017 11:13:00 Document Registration
--- OUTSIDE RECORDS SUMMARY | 2017-10-13 08:08 | XMS REPORT | Encounter Summary ---
Author Author [facility] Organization [facility] Address Unknown Phone Unavailable Care Team Providers Care Manager Pathology Name Role Phone Yadira Sands MD PCP Wilton Wright MD [address] [phone] Encounter Details Date Type Department Care Team Description 08/19/2017 Prep for Case [facility] James Carson DO Physicians - Surgery [address] [facility] [place] [address] [address] [place] [address] [place], [place] [phone] [phone] Social History Tobacco Use Types Packs/Day Years [...]
== END 2017-10-11 14:50 | disposition home or self-care (01) ==
LOC: EDUNIT# 10:19 → ER 10:21
DX: R10.84 Generalized abdominal pain (principal); E86.0 Dehydration; Z90.49 Acquired absence of other specified parts of digestive tract; Z87.19 Personal history of other diseases of the digestive system
CPT/HCPCS: 36415; 74022; 80053; 81000; 83735; 85025; 96361; 96374

== ENCOUNTER → 2017-10-16 | Outpatient (CLI) | payer OTHER ==
--- NOTE | 2017-10-16 11:30 | Diagnostic Imaging Report ---
INDICATION: Shortness of breath and weakness. TIME OF EXAM: 11:05 a.m. Correlation is made with prior study from 10/11/2017. FINDINGS: The heart size is normal. The pulmonary vascularity is unremarkable. The lungs are clear. No infiltrate, effusion or pneumothorax is detected. IMPRESSION: No acute cardiopulmonary process is detected. Dictated by: Dictated on workstation # [id number]
== END ==
LOC: RAD 10:03
PROVIDERS: ATTEND Family Medicine
DX: R06.00 Dyspnea, unspecified (principal); R53.83 Other fatigue; Z98.890 Other specified postprocedural states
CPT/HCPCS: 36415; 71046; 84484; 85379

== ENCOUNTER → 2019-01-08 | Outpatient (CLI) | payer OTHER ==
--- NOTE | 2019-01-08 20:57 | Diagnostic Imaging Report ---
INDICATION: Routine screening. Comparison is made with prior mammogram from 01/05/2016. 2-D and 3-D bilateral screening mammography was performed with a Computer Aided Detection (CAD) system. FINDINGS: Both breasts are heterogeneously dense, limiting the sensitivity of mammography. No mass or malignant appearing microcalcifications are seen. Axillae are unremarkable. IMPRESSION: No mammographic features suspicious for malignancy are identified. ACR BI-RADS Category 1: Negative. Result letter will be mailed to the patient. Note: At least 10% of breast cancer is not imaged by mammography. Dictated by: Dictated on workstation # [id number]
== END ==
LOC: RAD 10:46
PROVIDERS: ATTEND Obstetrics & Gynecology
DX: Z12.31 Encounter for screening mammogram for malignant neoplasm of breast (principal)
CPT/HCPCS: 77067

== ENCOUNTER → 2020-02-15 | Outpatient (CLI) | payer OTHER ==
--- NOTE | 2020-02-15 09:28 | Diagnostic Imaging Report ---
INDICATION: Routine screening. COMPARISON: 01/08/2019 and 01/05/2016. TECHNIQUE: 2D and 3D bilateral screening mammography was performed with CAD. FINDINGS: Both breasts are heterogeneously dense, limiting the sensitivity of mammography. The parenchymal pattern is stable. No mass or malignant appearing microcalcifications are seen. The axillae are unremarkable. IMPRESSION: No mammographic features suspicious for malignancy are identified. ACR BI-RADS Category 1: Negative. Result letter will be mailed to the patient. Note: At least 10% of breast cancer is not imaged by mammography. Dictated by: Dictated on workstation # [id number]
== END ==
LOC: RAD 08:09
PROVIDERS: ATTEND Obstetrics & Gynecology
DX: Z12.31 Encounter for screening mammogram for malignant neoplasm of breast (principal)
CPT/HCPCS: 77063; 77067

== ENCOUNTER → 2020-06-27 | Outpatient (CLI) | payer OTHER | LOC: LABNPT 05:46 | PROVIDERS: ATTEND Internal Medicine | DX: Z53.9 Procedure and treatment not carried out, unspecified reason (principal) ==

== ENCOUNTER → 2021-06-28 | Outpatient (CLI) | payer OTHER ==
--- NOTE | 2021-06-28 11:04 | Diagnostic Imaging Report ---
EXAMINATION: Left forearm at 10:50 AM. INDICATION: Injury, arm pain. TECHNIQUE/COMPARISON: AP and lateral views were obtained. There are no prior studies available for comparison. FINDINGS: There is no fracture, dislocation, or acute bony abnormality of the radius or ulna identified. The elbow joint and radiocarpal joint are fairly well maintained. There is slight irregularity of the base of the 1st metacarpal. This may be a sequela of prior trauma as opposed to an acute injury. Even so, clinical followup is recommended. Reportedly, a left hand study is pending for further evaluation. The soft tissues are unremarkable. IMPRESSION: 1. There is no acute abnormality of the radius or ulna. 2. The slight irregularity of the base of the 1st metacarpal is of uncertain etiology. Reportedly, a left hand study is pending for further evaluation. Dictated by: Dictated on workstation # [id number]
--- NOTE | 2021-06-28 11:20 | Diagnostic Imaging Report ---
EXAMINATION: Left wrist at 1049 AM INDICATION: Injury, wrist pain 3 views were obtained. There are no prior studies available for comparison. The left forearm exam performed in conjunction with the study did note some irregularity of the base of the 1st metacarpal. That finding is again evident. This could be a sequela of prior trauma. The possibility that this finding is related to an acute nondisplaced fracture should still be considered. Clinical follow-up is recommended. No other fracture or acute bony abnormality is identified. There does appear to be moderate degenerative disease of the triscaphe joint. There are no other significant arthritic changes visualized. The soft tissues are unremarkable. IMPRESSION: 1. The irregularity of the base of the 1st metacarpal is of uncertain etiology. Whether this is a sequela of prior trauma or due to an acute nondisplaced fracture is unclear. If further imaging is desired, then CT would be recommended. 2. There is no acute bony abnormality noted otherwise. Dictated by: Dictated on workstation # [id number]
--- NOTE | 2021-06-28 11:24 | Diagnostic Imaging Report ---
EXAMINATION: Left hand at 1047 AM INDICATION: Injury AP and lateral views were obtained. The left forearm and left wrist exams performed in conjunction with the study raised the question of a nondisplaced fracture involving the base of the 1st metacarpal. On this study, however, there is no clear evidence for a fracture involving the base of the 1st metacarpal. Degenerative disease of the triscaphe joint is again noted. No other fracture or acute abnormality of the hand is identified. The soft tissues are unremarkable. IMPRESSION: 1. The irregularity of the base of the 1st metacarpal seen on the left wrist and forearm exams cannot be identified on this study. 2. If clinical concern regarding an occult fracture of the base of 1st metatarsal persists, then CT would be recommended. 3. There is degenerative disease involving the triscaphe joint. Dictated by: Dictated on workstation # [id number]
== END ==
LOC: RAD 10:18
PROVIDERS: ATTEND Family Medicine
DX: S69.92XA Unspecified injury of left wrist, hand and finger(s), initial encounter (principal); M19.042 Primary osteoarthritis, left hand; X58.XXXA Exposure to other specified factors, initial encounter
CPT/HCPCS: 73090; 73110; 73130

== ENCOUNTER → 2021-07-17 | Outpatient (CLI) | payer OTHER ==
--- NOTE | 2021-07-17 09:33 | Diagnostic Imaging Report ---
Exam: CT left hand without contrast. Date: July 17, 2021. Indication: 60-year-old female, left hand pain and swelling. Comparison: Left hand radiographs June 28, 2021. Technique: Axial CT images of the left hand were obtained without contrast. Coronal and sagittal reformats were obtained and provided. All CT scans use one or more of the following dose optimizing techniques: automated exposure control, MA and/or KvP adjustment based on patient size and exam type or iterative reconstruction. . Findings: There is severe joint space loss of the first carpometacarpal joint with small subchondral cysts and osteophytes. There is mild triscaphe arthritis. There is a lesion contiguous with the intramedullary cavity arising from the base of the second metacarpal along its volar and radial aspect best demonstrated on axial image 258 measuring 7 x 4 x 6 mm in size which is most compatible with an osteochondroma. There is an additional more volarly and radially located ossification which is very near but not contiguous with the above-mentioned ossification. This specific area of ossification measures approximately 8 x 5 x 6 mm in size. There is surrounding subtle low-attenuation. There is no direct contact of the adjacent flexor tendons. There is no identified acute fracture. Impression: 1. No identified acute fracture. 2. Ossification contiguous with the intramedullary cavity arising from the base of the second metacarpal as described above with imaging appearance most consistent with an osteochondroma. There is an immediately subjacent ossification not contiguous with the ossification which is contiguous with the intramedullary cavity and surrounding low-attenuation. This may be related to the adjacent osteochondroma and could relate to an ossification within a subjacent bursae. An area of heterotopic ossification is also considered. This does not have an overtly aggressive in appearance. Targeted small field of view MRI may be of benefit for further evaluation of this area. 3. Severe first carpometacarpal osteoarthritis and mild triscaphe arthritis. Dictated by: Dictated on workstation # [id number]
== END ==
LOC: RAD 08:45
PROVIDERS: ATTEND Family Medicine
DX: M18.12 Unilateral primary osteoarthritis of first carpometacarpal joint, left hand (principal); M61.54 Other ossification of muscle, hand
CPT/HCPCS: 73200

== ENCOUNTER → 2021-07-24 | Outpatient (CLI) | payer OTHER ==
--- NOTE | 2021-07-24 11:10 | Diagnostic Imaging Report ---
PROCEDURE: MRI left upper extremity without contrast. TECHNIQUE: Multiplanar, multisequence non contrast-enhanced MRI of the left upper extremity was accomplished. INDICATION: Pain at the base of the thumb, further evaluation of osteochondroma. COMPARISON: CT of the hand from 07/07/2021 and left wrist radiographs from 06/28/2021. FINDINGS: There are marked degenerative changes at the thumb CMC with extensive bone marrow edema throughout the base of the 1st metacarpal and trapezium. There is also bone marrow edema in the base of the 2nd metacarpal. T2 hyperintense signal within the thumb CMC joint is most likely due to synovitis. The area of osseous excrescence seen on CT is suboptimally seen on MRI due to small size of the structure and the technical parameters of MRI. Due to the imaging [id number] size, assessment of the small ligaments at the thumb CMC joint is suboptimal. Allowing for this, the anterior oblique ligament is grossly intact. There is soft tissue intramuscular and intermuscular edema involving the thenar musculature of the hand, all centered around the advanced degenerative changes at the thumb CMC. The flexor and extensor tendons of the thumb are intact. IMPRESSION: 1. Severe osteoarthritis of the thumb CMC is present. There is associated synovitis within the CMC and moderate bone marrow edema. These inflammatory changes are highly likely reactive in nature due to the advanced degenerative change although less likely mild arthropathy such as crystalline deposition disease or infection could be considered. Correlation with erythrocyte sedimentation rate and/or CRP may be useful. 2. The osseous abnormalities along the thumb base are better delineated by the recent CT due to higher spatial resolution with CT. Allowing for this, the heterotopic ossification seen is likely reactive change due to the advanced osteoarthritis or crystalline deposition disease. Dictated by: Dictated on workstation # [id number]
== END ==
LOC: RAD 08:45
PROVIDERS: ATTEND Family Medicine
DX: D16.12 Benign neoplasm of short bones of left upper limb (principal); M18.12 Unilateral primary osteoarthritis of first carpometacarpal joint, left hand
CPT/HCPCS: 73218